=== PATIENT | female | born 1935 | race Asian ===

== ENCOUNTER 2024-02-28 15:26 | Inpatient (IN) | payer MEDICARE, OTHER ==
[~2024-02-28] VITALS: Ht 152.4 cm
[2024-02-28] MEDS ORDERED: ZESTRIL5 MG PO (15:44)
[2024-02-28] MEDS ORDERED: ELIQUIS2.5 MG PO (15:45)
[2024-02-28] MEDS ORDERED: ondansetron HCL 4 MG/2 ML VIAL IV ONE (16:00)
[2024-02-28] MEDS ORDERED: SODIUM CHLORIDE 0.9% 500 ML IV ONE (16:00)
[2024-02-28 16:12] LABS: BASOPHILS 0.2 % (0-2); EOSINOPHILS 0.1 % (0-6); HEMATOCRIT 31.2 % (35.0-50.0); HEMOGLOBIN 9.8 g/dL (12.0-18.0); LYMPHOCYTES 2.6 % (24-44); MCH 20.7 (27-36); MCHC 31.3 g/dl (30-36); MONOCYTES 6.3 % (0-12); NEUTROPHILS 90.8 % (39-80); PLATELET COUNT 180 K/uL (140-440); RBC 4.73 M/ul (4.3-5.7)
[2024-02-28 16:22] LABS: BILIRUBIN, URINE NEGATIVE (negative); BLOOD/HGB, URINE NEGATIVE (Negative); KETONE, URINE NEGATIVE (Negative); LEUK ESTERASE, URINE NEGATIVE (negative); NITRITE, URINE NEGATIVE (negative); PH, URINE 7.5 (5-7)
[2024-02-28 16:33] LABS: ALBUMIN 3.8 g/dL (3.4-5.0); ALBUMIN/GLOBULIN RATIO 0.83 (1.1-2.4); BILIRUBIN, TOTAL 2.8 ng/dL (0.2-1.0); BUN/CREATININE RATIO 18.26 (6.0-28.6); CALCIUM 9.4 mg/dL (8.5-10.1); CREATININE, SERUM 1.04 mg/dL (0.55-1.02); MAGNESIUM 1.9 mg/dL (1.8-2.4); PROTEIN, TOTAL 8.4 g/dL (6.4-8.2)
[2024-02-28] MEDS ORDERED: SODIUM CHLORIDE 0.9% 500 ML IV PRN (17:00)
[2024-02-28] MEDS ORDERED: metroNIDAZOLE/SODIUM CHLORIDE 500 MG/100 ML PIGGYBACK IV ONE (18:30)
[2024-02-28] MEDS ORDERED: CEFTRIAXONE/SODIUM CHLORIDE 2 GM/100 ML PIGGYBACK IV ONE (18:30)
[2024-02-28] MEDS ORDERED: CEFAZOLIN SODIUM 2 GM/20 ML SYR IV ONE (20:15)
[2024-02-28 20:26] LABS: INR 0.98 (0.80-1.30); PROTIME 12.3 Sec (11.2-14.2)
[2024-02-28] MEDS ORDERED: ondansetron HCL 4 MG/2 ML VIAL IV PRN (20:30)
[2024-02-28] MEDS ORDERED: LACTATED RINGER'S 1,000 ML IV SCH (20:30)
[2024-02-28] MEDS ORDERED: MORPHINE SULFATE 10 MG/ML VIAL IV PRN (20:30)
[2024-02-28] MEDS ORDERED: FAMOTIDINE 20 MG/ 2 ML VIAL IV ONE (20:30)
[2024-02-28] MEDS ORDERED: FAMOTIDINE 20 MG/ 2 ML VIAL IV SCH (21:00)
[2024-02-28 21:43] VITALS: BP 141/71
--- NOTE | 2024-02-28 21:45 | NUR ---
PATIENT TRANSFERRED TO THE FLOOR BY INSTALL AND REPAIR TECHNICIAN. PATIENT TRANSFERRED FROM STRETCHER TO BED WITH MINIMAL SBA. VS AND BED WEIGHT OBTAINED AND RECORDED. ASSESSMENT COMPLETE. IV FLUSHES WNL. PATIENT HS NO FURTHER NEEDS. CALL LIGHT IN REACH. PATIENT EDUCATED TO ROOM AND CALL LIGHT. PATIENT VERBILIZES UNDERSTANDING. BED ALARM ON. CPOX IN PLACE.
--- NOTE | 2024-02-28 21:55 | NUR ---
pt ARRIVES TO [place] WITH HIDE TRIMMERSHAHRIAR YEN VIA STRETCHER. pt CANTONESE SPEAKING ONLY. DENIES CANARY BREEDER, DAUGHTER TRANSLATING FOR pt. ASKS pt HISTORY QUESTIONS. ORIENTATION TO ROOM AND PLAN OF CARE PROVIDED. QUESTIONS ANSWERED. CALL LIGHT IN REACH. BED ALARM ON.
[2024-02-29] VITALS (12 sets, daily range): BP systolic 122–168; BP diastolic 63–85
[2024-02-29] MEDS ORDERED: ondansetron HCL 4 MG/2 ML VIAL IV PRN (00:15)
[2024-02-29] MEDS ORDERED: LACTATED RINGER'S 1,000 ML IV SCH (00:15)
--- NOTE | 2024-02-29 00:15 | NUR ---
PATIENT UP TO BATHROOM WITH MINIMAL SBA TO VOID. PATIENT BACK TO BED. VS AND I&Os OBTAINED AND RECORDED. BED ALARM ON. CPOX IN PLACE. PATIENT O2 SAT READING DROPPED TO MID 80s WHILE RESTING. 2L NC PLACED ON PATIENT. NO FURTHER NEEDS. CALL LIGHT IN REACH. DAUGHTER IN ROOM ON COUCH.
--- NOTE | 2024-02-29 02:07 | NUR ---
PATIENT RESTING IN BED ON BACK WITH EYES CLOSED. 02 97% ON 2L NC. RESPIRATIONS EVEN AND UNLABORED. CALL LIGHT IN REACH.
--- NOTE | 2024-02-29 04:10 | NUR ---
PATIENT RESTING IN BED ON BACK WITH EYES CLOSED. O2 SAT 97%. RESPIRATIONS EVEN AND UNLABORED. CALL LIGHT IN REACH.
--- NOTE | 2024-02-29 05:34 | NUR ---
PATIENT RESTING IN BED. PATIENT UP TO BATHROOM WITH SBA TO VOID. PATIENT BACK TO BED. VS AND I&Os OBTAINED AND RECORDED. PATIENT DENIES PAIN AT THIS TIME. SCHEDULED MEDICATION ADMINSITERED. NEW BAG IV FLUID INFUSING PER ORDER. NO FURTHER NEEDS. CALL LIGHT IN REACH. BED ALARM ON.
[2024-02-29 05:55] LABS: HEMATOCRIT 25.7 % (35.0-50.0); HEMOGLOBIN 8.3 g/dL (12.0-18.0); MCH 21.1 (27-36); MCHC 32.2 g/dl (30-36); MCV 65.5 fl (81-99); PLATELET COUNT 138 K/uL (140-440); RBC 3.93 M/ul (4.3-5.7)
[2024-02-29] MEDS ORDERED: ACETAMINOPHEN 500 MG TAB PO SCH (06:00)
[2024-02-29 06:08] LABS: ALBUMIN 2.8 g/dL (3.4-5.0); ALBUMIN/GLOBULIN RATIO 0.72 (1.1-2.4); ANION GAP 14.9 (7-21); BILIRUBIN, TOTAL 4.4 ng/dL (0.2-1.0); BUN/CREATININE RATIO 11.71 (6.0-28.6); CALCIUM 8.4 mg/dL (8.5-10.1); CREATININE, SERUM 1.11 mg/dL (0.55-1.02); POTASSIUM 3.9 mmol/L (3.5-5.1); PROTEIN, TOTAL 6.7 g/dL (6.4-8.2)
[2024-02-29 06:25] LABS: LYMPHOCYTES, MANUAL DIFF 17; MONOCYTES, MANUAL DIFF 10; NEUTROPHILS, MANUAL DIFF 73
--- NOTE | 2024-02-29 07:10 | NUR ---
REPORT RECEIVED FROM SHAHRIAR TALLEY. PT RESTING IN BED WITH EYES CLOSED, MOUTH OPEN, RR EVEN AND UNLABORED, SOFT SNORE SNOTED. PTs DAUGHTER RESTING ON COUCH IN ROOM.
--- NOTE | 2024-02-29 08:35 | NUR ---
MEDICATIONS ADMINISTERED, SEE MAR. ASSESSMENT COMPLETE AT THIS TIME. PT IS IN BED AND FEELS DROWSY PER HER DAUGHTER WHO IS PRESENT ON COUCH THROUGHOUT VISIT. PT AND DAUGHTER REFUSE USE OF FLAKE DRIER, DAUGHTER ASSISTS IN COMMUNICATION. PT IS REPORTING NO NAUSEA, BUT SAYS SHE HAS VERY LITTLE APPETITE AT THIS TIME. NO OTHER NEEDS NOTED, IV ABX INFUSING IN R AC WNL AT THIS TIME. CALL LIGHT IN REACH.
[2024-02-29] MEDS ORDERED: CEFTRIAXONE/SODIUM CHLORIDE 1 GM/100 ML PIGGYBACK IV SCH (09:00)
[2024-02-29] MEDS ORDERED: metroNIDAZOLE/SODIUM CHLORIDE 500 MG/100 ML PIGGYBACK IV SCH (09:00)
--- NOTE | 2024-02-29 10:06 | NUR ---
PT CURRENTLY UP AND AMBULATING IN HALLS WITH LIZZIE SMALL.
--- NOTE | 2024-02-29 10:16 | NUR ---
IN TO DO VITALS AND I&O'S. VITALS AND I&O'S DONE AND CHARTED. PATIENT AMBULATED [address] [facility]. PATIENT TOLERATED IT WELL. PATIENT NOW BACK TO BED. CALL LIGHT IN REACH. NO FURTHER NEEDS AT THIS TIME.
--- NOTE | 2024-02-29 10:52 | NUR ---
PT NOT AVAILABLE FOR VISIT. PROVIDED PRAYER.
--- NOTE | 2024-02-29 11:18 | NUR ---
UR CLINICAL REVIEW: [facility] FOR CHOLECYSTECTOMY. PROCEDURE DELAYED DUE TO ANTICOAGULATION ODS [facility] INPT 02/28/24 ORDER MATCHES [facility]INIC[facility] FAXED FOR AUTH REVIEW DISCHARGE TO HOME WHEN PROCEDURE COMPLETED AND STABLE 03/02/24
--- NOTE | 2024-02-29 11:34 | NUR ---
PT RESTING IN BED WITH EYES CLOSED AT THIS TIME, DAUGHTER PRESENT ON COUCH, CPOX AT BEDSIDE. CALL LIGHT IN REACH, NO REQUESTS AT THIS TIME.
--- NOTE | 2024-02-29 11:40 | HP ---
[facility] [address], [place] [address] Signed ADMISSION DATE: 02/28/2024 REASON FOR ADMISSION: Acute cholecystitis and probable gallstone pancreatitis with additional medical issues. HISTORY OF PRESENT ILLNESS: This 88-year-old Cantonese (Mohawk) woman who was accompanied by her daughter. Her daughter lives locally and speaks Albanian reasonably well. 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 Her mother who is the patient of course had presented with two bouts of emesis earlier in the day with epigastric and substernal pain, nausea, but no diarrhea and no fever or chills. Evaluation in the emergency room by Dr. Sandoval and ultimately Dr. Patrick included findings of an elevated white count of 16,000. A chemistry panel with an elevated bilirubin of 2.8, lipase greater than 375. An abdominal ultrasound performed confirms gallstones with gallbladder sludge, marked gallbladder wall thickening and pericholecystic fluid and a positive sonographic Perea's sign. The bile duct was 6 [address] in diameter. A CT scan of the abdomen and pelvis was reviewed showing marked inflammatory change in the region of the alisa hepatis including the gallbladder itself. Findings were most consistent with acute cholecystitis. It is notable that patient's medications include Eliquis. She does not have atrial fibrillation on EKG, but is said to have had a stroke seven years ago according to her daughter with whom I spoke. Her medications include Eliquis, lisinopril and metoprolol. PAST SURGICAL HISTORY: Unremarkable based on information I have available. REVIEW OF SYSTEMS: The patient is thirsty. She is feeling better since admission to the hospital according to her daughter. PHYSICAL EXAMINATION: GENERAL: This is a reserved aged woman who has a BMI of 23.3. HEENT: Mucous membranes are markedly dry. NECK: Trachea is midline. CHEST: Clear without wheeze or rhonchi. HEART: Regular at this time. ABDOMEN: Nondistended. There is no ascites. There is tenderness in the epigastric area. There is no palpable mass. No clear evidence of ascites. Electronically Signed By: CAMPBELL COMER MD 02/29/24 1140 PATIENT NAME: EMILIANO SURESH HISTORY AND PHYSICAL DATE OF : [birth year] REPORT #: [id number] PHYSICIAN: CAMPBELL COMER MD PCP: YESI SILVER MD REPORT IS CONFIDENTIAL AND NOT TO BE RELEASED WITHOUT AUTHORIZATION [facility] [address], [place] [address] Signed EXTREMITIES: Show no clubbing, cyanosis, or edema. LABORATORY STUDIES: Show a white count of 16.7, hematocrit 31.2, platelets a 180,000. Chem profile showing normal electrolytes. Creatinine is 1.04. Lipase elevated to greater than 375, reference upper limits of normal 77. CT scan images were reviewed, which confirm findings of a markedly edematous and distended gallbladder. I do not observe dilated common bile duct at this time. Ultrasound images were reviewed showing at least one gallstone, but a fair amount of sludge as well. The gallbladder was quite markedly dilated. ASSESSMENT: The patient has acute calculous cholecystitis and concurrent hyperlipasemia consistent with acute pancreatitis. She is on Eliquis for uncertain reasons. However, she has had a stroke in the past and perhaps she is given this medication for that purpose in someway. Her daughter denies that she has had prior history of atrial fibrillation. There are no admissions previously noted in the chart to affirm or refute her past medical history in that regard. I did have a discussion with her daughter regarding the extent to which interventions would be allowed. The patient's daughter wants to avoid operative interventions as much as possible, which is understandable, but given the findings I told her quite frankly that surgery quite likely would be needed and would be beneficial to her. She has a markedly edematous and inflamed gallbladder and at least one stone and a fair amount of sludge. Though she is somewhat infirm based on her advanced age of 88 years, cholecystectomy would likely be beneficial to her once able to be undertaken, whether or not she would require common duct exploration is uncertain. She is ineligible for operative intervention at this time based on the hyperlipasemia (pancreatitis) and importantly also ongoing use of Eliquis. Eliquis will be certainly withheld at this point. Given the complexity and uncertainty of her prior medical history, I have asked Dr. Metz, hospitalist to consult. Things are under control at this time and he will consult on her tomorrow, he says. MD YUSRA Boyce/FLY Electronically Signed By: CAMPBELL COMER MD 02/29/24 1140 PATIENT NAME: EMILIANO SURESH HISTORY AND PHYSICAL DATE OF : [birth year] REPORT #: [id number] PHYSICIAN: CAMPBELL COMER MD PCP: YESI SILVER MD REPORT IS CONFIDENTIAL AND NOT TO BE RELEASED WITHOUT AUTHORIZATION [address], [place] [address] Signed /[id number] cc: MD Dr. Celina Biggs MD Copies: SOLO SANDOVAL MD, RUSSEL J MD ~ Electronically Signed By: CAMPBELL COMER MD 02/29/24 1140 PATIENT NAME: EMILIANO SURESH HISTORY AND PHYSICAL DATE OF : [birth year] REPORT #: [id number] PHYSICIAN: CAMPBELL COMER MD PCP: YESI SILVER MD REPORT IS CONFIDENTIAL AND NOT TO BE RELEASED WITHOUT AUTHORIZATION
--- NOTE | 2024-02-29 12:00 | NUR ---
Spoke with pt and her daughter using motorcycle assembler [id number]. Daughter understands and speaks Qatari well and answers questions before motorcycle assembler can answer. Pt lives with her daughter, she uses a shower chair in the home. She has a cane for long distance, but gets around well. Mother asks for a different shower chair and daughter states the chair has been left when they moved. I gave the infor for [employer] closet printout with phone and address.Pt uses food stamps. They deny any needs or issues. Deny financial issues. Plan to dc to home when medically cleared. Pt cannot have surgery for 48 hours due to use of Eliquis.
--- NOTE | 2024-02-29 12:31 | NUR ---
SCDs APPLIED ORDERED. NO OTHER NEEDS AT THIS TIME, CALL LIGHT IN REACH, DAUGHTER PRESENT IN ROOM.
--- NOTE | 2024-02-29 13:51 | NUR ---
PT RESTING IN BED AWAKE AND ALERT, HAS NO NEEDS AT THIS TIME, REPORTS THAT SHE LIKES HOW THE SCDs FEELS. CALL LIGHT IN REACH, DAUGHTER IN ROOM.
[2024-02-29] MEDS ORDERED: LISINOPRIL10 MG PO (14:03)
--- NOTE | 2024-02-29 14:05 | EKG ---
[facility] [address] [facility] [place] [address] Signed Sinus rhythm with premature atrial complexes Nonspecific T wave abnormality Abnormal ECG No previous ECGs available Confirmed by Reena Valdez MD ([id number]) on 02/29/2024 2:05:12 PM Electronically Signed By: REENA VALDEZ DO 02/29/24 1405 PATIENT NAME: EMILIANO SURESH Electrocardiogram DATE OF : [birth year] PHYSICIAN: REENA VALDEZ DO REPORT #: [id number] REPORT IS CONFIDENTIAL AND NOT TO BE RELEASED WITHOUT AUTHORIZATION
[2024-02-29] MEDS ORDERED: METOPROLOL TART25 MG PO (14:13)
--- NOTE | 2024-02-29 14:25 | NUR ---
IN TO DO VITALS AND I&O'S. VITALS DONE AND CHARTED. PATIENT UP TO BATHROOM, SBA. DAUGHTER IN ROOM.
--- NOTE | 2024-02-29 14:50 | NUR ---
MEDICATION ADMINISTERED, SEE MAR. PT RATES HER PAIN A 0/10 VIA THE SOYBEAN GROWER SERVICE. SHE STATES SHE HAS NO NAUSEA AT THIS TIME. BOWEL TONES ARE ACTIVE IN ALL FOUR QUADRANTS. PT HAS FINISHED A JELLO AND DRINKS SOME WATER AT THIS TIME. NO OTHER REQUESTS, CALL LIGHT IN REACH. PTs DAUGHTER HAS TEMPORARILY GONE HOME AND STATES SHE WILL BE BACK SHORTLY.
--- NOTE | 2024-02-29 15:24 | NUR ---
medications reconciled
--- NOTE | 2024-02-29 17:33 | NUR ---
PT IS REPORTING EDEMA IN HER R HAND AND BILAT ANKLES. LUNG SOUNDS ARE CLEAR TO BUL WITH CRACKLES IN THE BASES. IVF IN R AC DISCONTINUED, MD INFORMED OF UPDATE. MD ARRIVES AND ASSESSES PT WITH UTILIZATION OF SCHOOL TRANSPORTATION DIRECTOR SERVICES. PT SPO2 94% ON RA, PT DOES NOT REPORT SOB. VS TAKEN AND RECORDED. PT DENIES PAIN AT THIS TIME. CALL LIGHT IN REACH, PT DAUGHTER PRESENT THROUGHOUT.
--- NOTE | 2024-02-29 18:28 | NUR ---
PT HAS LIQUID DINNER TRAY IN FRONT OF HER AND HAS JUST STARTED TO DRINK. PT HAS OCCASIONAL COUGH. INCENTIVE SPIROMETER EXPLAINED, PT RETURNS DEMONSTRATION OF USE X10. ENCOURAGED TO USE IS TO ASSIST IN KEEPING LUNGS STRONG. PT VERBALIZES UNDERSTANDING. NO OTHER NEEDS AT THIS TIME, CALL LIGHT IN REACH, DAUGHTER PRESENT IN ROOM THROUGHOUT.
--- NOTE | 2024-02-29 18:48 | NUR ---
PTs DAUGHTER ASSISTS PT TO RESTROOM AND EMPTIES HAT BEFORE STAFF HAS A CHANCE TO VIEW OUTPUT AMOUNT DESPITE REMINDERS.
--- NOTE | 2024-02-29 19:28 | NUR ---
REPORT RECIEVED FROM DAY SHIFT RN. PATIENT RESTING IN CHAIR WITH DAUGHTER IN ROOM. NO FURTHER NEEDS AT THIS TIME. CALL LIGHT IN REACH.
--- NOTE | 2024-02-29 20:43 | NUR ---
CONCRETE FENCE BUILDER OBTAINED VITALS AND I&O. PT STATES NO NEEDS AT THIS TIME. CALL LIGHT WITHIN REACH.
[2024-02-29] MEDS ORDERED: METOPROLOL TARTRATE 25 MG TAB PO SCH (21:00)
--- NOTE | 2024-02-29 21:04 | NUR ---
PATIENT RESTING IN BED WITH FAMILY IN ROOM. SCHEDULED MEDICATION ADMINISTERED. IV ABX INFUSING PER ORDER. IV FLUSHES WNL. CPOX IN PLACE. SCDs IN PLACE. PATIENT DENIES NEEDS AT THIS TIME. CALL LIGHT IN REACH.
--- NOTE | 2024-02-29 21:48 | NUR ---
PATIENT RESTING IN BED. SCHEDULED MEDICATION ADMINISTERED. ASSESSMENT COMPLETE. BOWEL TONES ACTIVE. PATIENT DENIES PAIN. NO FURTHER NEEDS AT THIS TIME. CALL LIGHT IN REACH.
--- NOTE | 2024-02-29 23:28 | NUR ---
PATIENT RESTING IN BED WITH EYES CLOSED. REPIRATIONS EVEN AND UNLABORED. CALL LIGHT IN REACH.
[2024-03-01] VITALS (20 sets, daily range): BP systolic 88–194; BP diastolic 47–89
--- NOTE | 2024-03-01 01:52 | NUR ---
PATIENT RESTING IN BED ON BACK WITH EYES CLOSED. RESPIRATIONS EVEN AND UNLABORED. CALL LIGHT IN REACH.
--- NOTE | 2024-03-01 05:42 | NUR ---
PHOTOGRAPHER APPRENTICE OBTAINED VITALS AND I&O. PT TAKEN OFF CPOX AT TRN DIRECTION. PT STATES NO NEEDS AT THIS TIME. ICE WATER REFILLED AND CALL LIGHT WITHIN REACH.
[2024-03-01 06:12] LABS: BASOPHILS 0.5 % (0-2); EOSINOPHILS 0.7 % (0-6); HEMATOCRIT 25.2 % (35.0-50.0); LYMPHOCYTES 6.9 % (24-44); MCH 21.2 (27-36); MCHC 31.9 g/dl (30-36); MCV 66.3 fl (81-99); NEUTROPHILS 80.9 % (39-80); PLATELET COUNT 129 K/uL (140-440); RDW 15.5 (10.5-15.0)
[2024-03-01 06:28] LABS: ALBUMIN 2.7 g/dL (3.4-5.0); ALBUMIN/GLOBULIN RATIO 0.75 (1.1-2.4); ANION GAP 13.7 (7-21); BUN/CREATININE RATIO 11.36 (6.0-28.6); CALCIUM 8.5 mg/dL (8.5-10.1); CREATININE, SERUM 0.88 mg/dL (0.55-1.02); POTASSIUM 3.7 mmol/L (3.5-5.1); PROTEIN, TOTAL 6.3 g/dL (6.4-8.2)
--- NOTE | 2024-03-01 06:35 | NUR ---
PATIENT RESTING IN BED. PATIENT DAUGHTER TRANSLATING AND STATES THAT PATIENT IS HAVING "ALITTLE PAIN FROM HER GALLBLADDER". SCHEDULED PAIN MEDICATION ADMINISTERED. FRESH WATER PROVIDED. PATIENT HAS NO FURTHER NEEDS. CALL LIGHT IN REACH. BOWEL TONES ACTIVE.
--- NOTE | 2024-03-01 07:14 | NUR ---
REPORT RECEIVED FROM SHAHRIAR TALLEY. PT SITTING UP IN BED WITH HOB ELEVATED, AWAKE AND ALERT. PTs DAUGHTER RESTING ON COUCH. PT SMILES AT THIS RN. CALL LIGHT IN REACH.
--- NOTE | 2024-03-01 08:08 | NUR ---
CALL TO MD TO VERIFY DIET ORDER, VM LEFT FOR MD AND WILL AWAIT RETURN CALL TO VERIFY DIET STATUS.
--- NOTE | 2024-03-01 08:24 | NUR ---
TAKING OFF RT SERVICE, PLEASE CALL WITH CONCERNS OR O2 USE.
--- NOTE | 2024-03-01 08:40 | NUR ---
MORNING MEDICATIONS ADMINISTERED, SEE MAR. ASSESSMENT COMPLETE. FUR DRESSER SERVICES CURRENTLY UNAVAILABLE DESPITE MULTIPLE ATTEMPTS. PTs DAUGHTER ASSISTED IN CONVERSING. PTs DAUGHTER ASSISTS PT TO AMBULATE TO RESTROOM, PT IS STEADY ON HER FEET. PT DENIES ANY PAIN OR NAUSEA AT THIS TIME. NO OTHER NEEDS AT THIS TIME, CALL LIGHT IN REACH, DAUGHTER REMAINS WITH PT.
[2024-03-01] MEDS ORDERED: lisinopriL 10 MG TAB PO SCH (09:00)
--- NOTE | 2024-03-01 10:07 | NUR ---
Upon entering the room, I introduce myself to the patient and her daughter. Her daughter communicates with me and the IMM letter is explained. The daughter does not verbalize questions at this time and is agreeable to sign the IMM letter. There are no care concerns expressed, a signed copy of the letter is returned to the patient and her daughter.
--- NOTE | 2024-03-01 11:40 | NUR ---
Spoke with pt and her daughter. Pt states, "hello" in mongolian and smiles. Daughter updates me she spoke with Dr. Juan and pt will have surgery tomorrow noon. They deny any needs.
--- NOTE | 2024-03-01 11:45 | NUR ---
PT IS UP, AWAKE AND ALERT IN HER RECLINER. SHE IS REQUESTING CHICKEN BROTH - PROVIDED. PTs DAUGHTER IS RESTING ON COUCH BESIDE HER. CALL LIGHT IN REACH.
--- NOTE | 2024-03-01 12:45 | NUR ---
MRI FORM FILLED OUT WITH PT AND ORTHO ASSISTANT SERVICES. PT HAS NO OTHER REQUESTS AT THIS TIME, UP IN RECLINER WITH BLE ELEVATED AND DAUGHTER PRESENT IN ROOM. MRI FORM ATTACHED TO CHART. CALL LIGHT IN REACH.
--- NOTE | 2024-03-01 14:19 | NUR ---
PT NOT AVAILABLE FOR VISIT. PROVIDED PRAYER.
--- NOTE | 2024-03-01 14:30 | NUR ---
PT RETURNS FROM MRI AND AMBULATES BACK TO BED WITH DAUGHTERs ASSIST. NO NEEDS AT THIS TIME, CALL LIGHT IN REACH.
--- NOTE | 2024-03-01 14:44 | NUR ---
PT IN CHAIR AT THIS TIME, SHE REQUESTING TO AMBULATE THE HALLWAY, SBA W/FWW. PT TOLERATED WELL, PAIN 3/10 AT THE END OF THE WALK. ASSISTED PT BACK TO BED FOR AFTERNOON NAP, DENIES ANY FURTHER NEEDS AT THIS TIME.
--- NOTE | 2024-03-01 15:06 | NUR ---
MEDICATION ADMINISTERED, SEE MAY. PT UP IN RECLINER VISITING WITH HER DAUGHTER. NO NEEDS AT THIS TIME, CALL LIGHT IN REACH.
--- NOTE | 2024-03-01 18:21 | NUR ---
PT PUT AMBULATING IN LAND WITH HER DAUGHTER AT THIS TIME.
[2024-03-01 19:05] LABS: HEPATITIS A ANTIBODY, IGM Negative (Negative); HEPATITIS B CORE ANTIBODY, IGM Negative (Negative); HEPATITIS B SURFACE ANTIGEN Negative (Negative); HEPATITIS C AB CIA INTERP Negative (Negative)
--- NOTE | 2024-03-01 19:48 | NUR ---
REPORT RECIEVED FROM DAY SHIFT RN. PATIENT RETING IN CHAIR WITH DAUGHTER IN ROOM. DENIES NEEDS AT THIS TIME. CALL LIGHT IN REACH.
--- NOTE | 2024-03-01 20:55 | NUR ---
PATIENT RESTING IN BED. PREVIOUS BP READING WAS HIGH. THIS RN REPEATED PATIENT BP. SCHEDULED MEDICATION ADMINISTERED. IV ABX INFUSING PER ORDER. IV FLUSHES WNL. ASSESSMENT COMPLETE. PATIENT DENIES FURTHER NEEDS. CALL LIGHT IN REACH.
--- NOTE | 2024-03-01 21:12 | NUR ---
MD CALLED BY THIS RN REGARDING PATIENTS HIGH BP. NEW ORDERS RECIEVED. VERIFIED USING REPEAT BACK METHOD.
[2024-03-01] MEDS ORDERED: hydrALAZINE HCL 20 MG/ML VIAL IV ONE (21:15)
--- NOTE | 2024-03-01 21:31 | NUR ---
PATIENT RESTING IN BED. SCHEDULED MEDICATION DISCUSSED WITH DAUGHTER OVER PHONE AND PATIENT AND DAUGHTER DENY THE NEED FOR THE HAIR BOILER. IV MEDICATION ADMINISTERED. NO FURTHER NEEDS. CALL LIGHT IN REACH.
--- NOTE | 2024-03-01 21:57 | NUR ---
MD CALLED REGARDING PATIENTS HR. NEW ORDERS RECIEVED. VERIFIED USING REPEAT BACK METHOD.
[2024-03-01] MEDS ORDERED: METOPROLOL TARTRATE 5 MG/5 ML VIAL IV ONE (22:00)
--- NOTE | 2024-03-01 22:00 | NUR ---
MD ROSENBAUM CALLED REGARDING PATIENTS TELE READING AND HR. BULL STATES HE WILL COME TO PATIENT ROOM.
--- NOTE | 2024-03-01 22:20 | NUR ---
EKG OBTAINED. SCHEDULED MEDICATION ADMINISTERED. PATIENT REQUESTING NC. PATIENT O2 99% ON RA. 2L NC PLACED FOR PATIENT COMFORT. DAUGHTER IN ROOM TRANSLATING. FAMILY PARTNERSHAHRIAR MCKEON, SHINGLE SAWYER DAVID, AND FLOAT SHAHRIAR DONATO IN ROOM.
--- NOTE | 2024-03-01 22:29 | NUR ---
PT MOVED TO ROOM 129 CCU. DAUGHTER TOOK ALL BELONGINGS TO ROOM.
--- NOTE | 2024-03-01 22:30 | NUR ---
BLOCK CHARTING; 2220 - 0000 PATIENT ARRIVED TO THE UNIT WITH MAYANK REED RN, AND . PATIENT CONNECTED TO MONITOR. HR 130-140'S; A.FIB WITH RVR. PATIENT IS ALERT, REPORTING "POUNDING" CHEST PAIN. PATIENT RECEIVED FIRST DOSE OF LOPRESSOR PRIOR TO TRANSFER. MD REMAINS AT BEDSIDE. PATIENT HYPOTENSIVE AT THIS TIME, 1L LR BOLUS STARTED. SECOND IV SITE ESTABLISHED, STAT LABS DRAWN. PATIENT REPORTS NAUSEA AND HAD SMALL AMOUNT OF EMESIS. PRN ZOFRAN PROVIDED. PATIENT CONTINUED TO HAVE HR 130-140'S WITH SOFT BP. (SEE VS TREND) BOLUS AMIODARONE STARTED PER ORDER. PATIENT HR IMPROVING; 100-120'S. BP STABLE. LAB RESULTS REVIEWED AND ELECTROLYTE REPLACEMENT STARTED. PATIENT TAKEN TO CT FOR R/O PE. PATIENT TOLERATED WELL. UPON RETURN TO ROOM PATIENT UP TO BSC TO VOID. PATIENT TOLERATED ACTIVITY WELL. PATIENT CONVERTED BACK TO SR WITH HR 60-70. BP REMAINS STABLE. FAMILY AT BEDSIDE.
--- NOTE | 2024-03-01 22:32 | NUR ---
LOPRESSOR IV 5 MG GIVEN AT 2220. IV FLUSHED. SL AT THAT TIME.
[2024-03-01 22:34] LABS: HEMOGLOBIN 9.5 g/dL (12.0-18.0)
[2024-03-01] MEDS ORDERED: MORPHINE SULFATE 4 MG/ML VIAL ONE (22:34)
[2024-03-01 22:37] LABS: BASOPHILS 0.6 % (0-2)
[2024-03-01] MEDS ORDERED: MORPHINE SULFATE 4 MG/ML VIAL IV ONE (22:45)
[2024-03-01] MEDS ORDERED: AMIODARONE/DEXTROSE 100 ML IV ONE ×2 (22:51→23:00)
[2024-03-01 22:53] LABS: EOSINOPHILS 0.8 % (0-6); HEMATOCRIT 29.6 % (35.0-50.0); LYMPHOCYTES 12.9 % (24-44); MCH 21.1 (27-36); MCHC 32.1 g/dl (30-36); MCV 65.7 fl (81-99); MONOCYTES 7.2 % (0-12); NEUTROPHILS 78.5 % (39-80); PLATELET COUNT 151 K/uL (140-440); RBC 4.51 M/ul (4.3-5.7); RDW 15.7 (10.5-15.0)
--- NOTE | 2024-03-01 22:57 | NUR ---
MD COMER UPDATED REGARDING PATIENTS STATUS AND PATIENT BEING TRANSFERRED TO CCU.
[2024-03-01] MEDS ORDERED: ESMOLOL HCL 250 ML IV SCH (23:00)
[2024-03-01] MEDS ORDERED: dilTIAZem HCL 25 MG/5 ML VIAL ONE (23:02)
[2024-03-01 23:03] LABS: INR 1.07 (0.80-1.30); PROTIME 13.5 Sec (11.2-14.2)
[2024-03-01] MEDS ORDERED: AMIODARONE/DEXTROSE 200 ML IV ONE ×2 (23:05→23:15)
[2024-03-01] MEDS ORDERED: LACTATED RINGER'S 1,000 ML IV ONE (23:15)
[2024-03-01 23:23] LABS: ALBUMIN 3.1 g/dL (3.4-5.0); ALBUMIN/GLOBULIN RATIO 0.7 (1.1-2.4); ANION GAP 21.1 (7-21); BILIRUBIN, TOTAL 3.1 ng/dL (0.2-1.0); BUN/CREATININE RATIO 9.9 (6.0-28.6); CALCIUM 8.8 mg/dL (8.5-10.1); CREATININE, SERUM 1.01 mg/dL (0.55-1.02); MAGNESIUM 1.6 mg/dL (1.8-2.4); POTASSIUM 3.1 mmol/L (3.5-5.1); PROTEIN, TOTAL 7.5 g/dL (6.4-8.2)
[2024-03-01] MEDS ORDERED: POTASSIUM CHLORIDE 10 MEQ TABCR PO STA (23:26)
[2024-03-01] MEDS ORDERED: MAGNESIUM SULFATE 2 GM/50 ML BAG IV SCH (23:30)
[2024-03-01] MEDS ORDERED: POTASSIUM CHLORIDE 40 MEQ in DEXTROSE 5% 250 ML IV ONE (23:30)
[2024-03-01] MEDS ORDERED: POTASSIUM CHLORIDE 10 MEQ/100 ML BAG IV SCH (23:45)
[2024-03-02] VITALS (20 sets, daily range): BP systolic 99–166; BP diastolic 59–88
--- NOTE | 2024-03-02 01:00 | NUR ---
PATIENT RESTING IN BED. REPORTS FEELING WELL. DENIED PAIN. MILD GI UPSET. MAG AND k+ REPLACEMENT INFUSING PER ORDER, IV SITES WNL X2. PATIENT REMAINS IN SINUS RHYTHM; HR 60'S. ADEQUATE BP.
--- NOTE | 2024-03-02 03:00 | NUR ---
PATIENT UP TO [facility] TO VOID. PATIENT STEADY ON HER FEET. MINIMAL ASSIST REQUIRED. HR 60'S WITH ACTIVITY; SINUS RHYTHM.
--- NOTE | 2024-03-02 05:00 | NUR ---
LAB IN FOR MORNING DRAW. PATIENT RESTING IN BED. VS STABLE. IV SITES WNL X2. PATIENT DENIED GI UPSET OR PAIN.
[2024-03-02] MEDS ORDERED: AMIODARONE/DEXTROSE 200 ML IV ONE (05:05)
[2024-03-02 05:32] LABS: BASOPHILS 1.1 % (0-2); EOSINOPHILS 0.1 % (0-6); HEMATOCRIT 26.1 % (35.0-50.0); HEMOGLOBIN 8.5 g/dL (12.0-18.0); LYMPHOCYTES 3.3 % (24-44); MCH 21.3 (27-36); MCHC 32.6 g/dl (30-36); MCV 65.4 fl (81-99); NEUTROPHILS 72.5 % (39-80); PLATELET COUNT 142 K/uL (140-440); RBC 3.99 M/ul (4.3-5.7); RDW 16.2 (10.5-15.0)
[2024-03-02 05:54] LABS: ALBUMIN 2.8 g/dL (3.4-5.0); ALBUMIN/GLOBULIN RATIO 0.7 (1.1-2.4); ANION GAP 17.8 (7-21); BILIRUBIN, TOTAL 2.4 ng/dL (0.2-1.0); BUN/CREATININE RATIO 8.51 (6.0-28.6); CALCIUM 8.3 mg/dL (8.5-10.1); CREATININE, SERUM 0.94 mg/dL (0.55-1.02); POTASSIUM 4.8 mmol/L (3.5-5.1); PROTEIN, TOTAL 6.8 g/dL (6.4-8.2)
[2024-03-02] MEDS ORDERED: FUROSEMIDE 20 MG/2 ML VIAL IV ONE (06:15)
--- NOTE | 2024-03-02 06:15 | NUR ---
UPDATE PROVIDED TO . SEE EMAR FOR NEW ORDERS.
--- NOTE | 2024-03-02 07:00 | NUR ---
PATIENT PROVIDED LASIX PER ORDER. PATIENT DENIED PAIN OR GI UPSET, PATIENT REQUEST NOT TO TAKE SCHEDULED TYLENOL.
--- NOTE | 2024-03-02 08:30 | NUR ---
in room with pt and daughter, daughter is translating for pt per her request, reports abd discomfort - scheduled for iqra sx later today, abx fusing via iv pump r ac site wnl. call light in reach - pt resting in bed.
--- NOTE | 2024-03-02 09:09 | NUR ---
pt up to bsc with assist, void well - i/o in and iv pump cleared. pt c/o abd discomfort. zofran given iv.
--- NOTE | 2024-03-02 10:13 | NUR ---
call from or - no surgery today. foam chargeral reno asking for orders and clarification of diet.
--- NOTE | 2024-03-02 10:34 | NUR ---
this rn spoke with dr johnson new order for surgery tomorrow, new order for clear liq until midnight. - RN advised pt and family - pt denies needs, denies ice or liquids at this time.
--- NOTE | 2024-03-02 13:40 | NUR ---
In and spoke with Ellen Escalona using deputy chief sheriff [id number]. Lengthy conversation between pt and deputy chief sheriff with deputy chief sheriff asking her to repeat. Automation Developer states pt does not speak cantonese and she cannot interpret the conversation accurately. Pt called her daughter, Stacey. She was able to spell the name of the language Ellen speaks and I was able to find it on the online deputy chief sheriff. Pt speaks Taishanese. Pt had lengthy conversation with deputy chief sheriff [id number] Yessica. Pt explained all the pain she has had from her gallbladder, the palpitations from last night, and how her pain is now gone with medication. She understands her gallbladder needs to be removed. Pt denies any needs and plans on surgery whenever the DrMatt can complete. Note placed on adjust Automation Developer requesting pt use the [employer] deputy chief sheriff.
--- NOTE | 2024-03-02 14:05 | NUR ---
dr johnson here pt inchair and daughter at side. next rn in room with dr wallis using bedside audio boat finisher in [facility]. pt in chair reports no chest pain. hr 62, 98% 1 l nc. 120/66 80 map. pt up with family to bsc. denies needs at this time.
--- NOTE | 2024-03-02 14:15 | NUR ---
dr and combat information center officer helped explain pt clear liquid diet npo after midnight. plan for surgery for tomorrow.
[2024-03-02] MEDS ORDERED: AMIODARONE HCL 180 MG in DEXTROSE 5% 96.4 ML IV ONE (17:05)
--- NOTE | 2024-03-02 17:35 | NUR ---
PT RESTING IN BED, DAUGHTER AT SIDE. WARM BLANKET GIVEN TO BOTH AND HEAT TURNED UP. PT TOLL CL LIQUID DIET AND VOID BSC QS. CALL LIGHT IN REACH AND DENIES NEEDS.
--- NOTE | 2024-03-02 18:53 | NUR ---
PT RESTING WITH FAMILY IN ROOM, DENIES NEEDS, SL IV WNL, FLUIDS AT BEDSIDE UNTIL MIDNIGHT. PLAN FOR SX TOMORROW.
--- NOTE | 2024-03-02 20:00 | NUR ---
PT C/O NAUSEA AND PROVIDED 4MG IVP SLOW OF ZOFRAN. PTDAUGHTER REPORTED THAT PT FEELS LIKE SHE WANT TO THROW UP.
--- NOTE | 2024-03-02 20:08 | NUR ---
PATIENT REPORTS NAUSEA TO TEST OPERATOR, PATIENT ADMINISTERED ZOFRAN PRN, PATIENT NOW REPORTS BETTER, BUT STILL UNCOMFORTABLE.
[2024-03-02] MEDS ORDERED: PROCHLORPERAZINE EDISYLATE 10 MG/2 ML VIAL IV PRN (20:45)
[2024-03-02] MEDS ORDERED: HYDROmorphone HCL 1 MG/ML SYR IV PRN (20:45)
--- NOTE | 2024-03-02 21:06 | NUR ---
CALLED FOR IV PAIN AND ANOTHER NAUSEA MEDICATION FOR MANAGEMENT, NEW ORDERS GIVEN AT 2044. AT THIS TIME DILAUDID 0.5MG IV AND COMPAZINE 10MG IV GIVEN AT THIS TIME, PATIENT CONTINUES TO ENDORSE PAIN AND NAUSEA. PATIENT DAUGHTER AT BEDSIDE. ASSISTS WITH TRANSLATION FOR ASSESSMENT. TRANSLATION COMPUTER IN ROOM WAS ON HOLD FOR 15MIN WITH NO ANSWER.
--- NOTE | 2024-03-02 21:08 | NUR ---
PATIENT JUST BACK TO BED FROM BATHROOM AND AMBULATING IN ROOM, SITTING UP IN RECLINER.
[2024-03-03] VITALS (21 sets, daily range): BP systolic 90–149; BP diastolic 44–84
--- NOTE | 2024-03-03 00:25 | NUR ---
PATIENT RESTING IN BED EYES CLOSED, NO DISTRESS NOTED. PATIENT ALERT TO RN AT BEDSIDE. ASSESSMENT COMPLETE. PATIENT REPORTS NO NAUSEA AND PAIN IS MUCH BETTER. CALL LIGHT IN REACH, NO REQUESTS OR CONCERNS AT THIS TIME BY PATIENT OR DAUGHTER.
--- NOTE | 2024-03-03 02:30 | NUR ---
PATIENT UP TO BATHROOM WITH DAUGHTER TO VOID. PATIENT REPORTS NO PAIN OR NAUSEA, SHE DID REPORT SHE FELT "A LITTLE DIZZY WHEN STANDING AND WALKING." PATIENT REPORTS NO DIZZINESS AT REST.
[2024-03-03 05:21] LABS: BASOPHILS 0.9 % (0-2); EOSINOPHILS 0.7 % (0-6); HEMOGLOBIN 8.2 g/dL (12.0-18.0); LYMPHOCYTES 7.5 % (24-44); MCH 21.3 (27-36); MCHC 32.9 g/dl (30-36); MCV 64.9 fl (81-99); MONOCYTES 11.8 % (0-12); NEUTROPHILS 79.1 % (39-80); PLATELET COUNT 148 K/uL (140-440); RBC 3.86 M/ul (4.3-5.7); RDW 15.5 (10.5-15.0)
--- NOTE | 2024-03-03 05:25 | NUR ---
PATIENT RESTING QUIETLY IN BED EYES CLOSED, ALERT TO RN AT BEDSIDE. NO COMPLAINTS TO REPORT OF PAIN OR NAUSEA.
[2024-03-03 05:26] LABS: ALBUMIN 2.6 g/dL (3.4-5.0); ALBUMIN/GLOBULIN RATIO 0.68 (1.1-2.4); ANION GAP 16.5 (7-21); BILIRUBIN, TOTAL 1.3 ng/dL (0.2-1.0); BUN/CREATININE RATIO 12.14 (6.0-28.6); CALCIUM 8.3 mg/dL (8.5-10.1); CREATININE, SERUM 1.07 mg/dL (0.55-1.02); POTASSIUM 3.5 mmol/L (3.5-5.1); PROTEIN, TOTAL 6.4 g/dL (6.4-8.2)
--- NOTE | 2024-03-03 06:40 | NUR ---
PATIENT REPOSITIONED, SHE DENIES PAIN OR NAUSEA AT THIS TIME. PATIENT DAUGHTER AT BEDSIDE IN RECLINER.
--- NOTE | 2024-03-03 08:21 | NUR ---
PT RESTING IN BED COMFORTABLY WITH DAUGHTER AT BEDSIDE. PT WAKES EASILY, STATES SHE STILL HAS "SOME PAIN" IN ABDOMEN, RUBBING HER ABD GENERALLY BUT STATES THAT SHE DOES NOT NEED PAIN MEDICAITON AT THIS TIME. THROUGH DAUGHTERS TRANSLATION PT DENIES NAUSEA. BREAKFAST PROVIDED TO DAUGHTER, EDUCATION ON NPO TILL AFTER SURGERY PROVIDED TO PT AND DAUGHTER AND BOTH DEMONSTRATE UNDERSTANDING. VS STABLE ON MONITOR, REMAINS IN NSR, AFEBRILE. DAUGHTER DENIES NEEDS AT THIS TIME.
--- NOTE | 2024-03-03 09:30 | NUR ---
AM ASSESSMENT COMPLETE - PT UP IN CHAIR ASSISTED BY DAUGHTER. DAUGHTER PROVIDING MOST CARES FOR PT INCLUDING USING THE BSC. FINE CRACKLES NOTED IN BILATERAL BASES POSTERIORLY. VS STABLE. PT CONTINUES TO AWAIT SURGERY. DENIES NEEDS AT THIS TIME.
--- NOTE | 2024-03-03 11:12 | NUR ---
NOTED IV SITE TO LEFT FOREARM WITH SWELLING AND REDNESS UNABLE TO FLUSH. SITE DISCONTINUED. NOTED IV SITE TO RIGHT AC TO BE LEAKING. SITE WAS DISCONTINUED. NEW 20G PLACED TO LEFT HAND. SITE WNL. IV ABX STARTED. PATIENT DAUGHTER AT BEDSIDE.
--- NOTE | 2024-03-03 12:58 | NUR ---
SURGEON ROUNDING IN ROOM PRIOR TO OR - TRANSLATION SERVICES USED (#[id number]) TO DISCUSS PROCEDURE AND COMPETE DNR WAIVER FORM. ALL QUESTIONS ANSWERED. CONSENT SIGNED. ASSESSMENT UNCHANGED FROM EARLIER. PT DENIES NEEDS AT THIS TIME.
[2024-03-03] MEDS ORDERED: METOCLOPRAMIDE HCL 10 MG/2 ML SDV ONE (14:39)
[2024-03-03] MEDS ORDERED: LACTATED RINGER'S 0 ML IV ONE (14:39)
[2024-03-03] MEDS ORDERED: DEXAMETHASONE SOD PHOS 4 MG/ML VIAL ONE (14:39)
[2024-03-03] MEDS ORDERED: ondansetron HCL 4 MG/2 ML VIAL ONE (14:39)
[2024-03-03] MEDS ORDERED: propofoL 200 MG/20 ML VIAL ONE (14:39)
[2024-03-03] MEDS ORDERED: LIDOCAINE HCL 4% 5 ML AMP ONE (14:39)
[2024-03-03] MEDS ORDERED: fentaNYL citrate 100 MCG/2 ML VIAL ONE (14:39)
[2024-03-03] MEDS ORDERED: SUGAMMADEX SODIUM 200 MG/2 ML ML ONE (14:39)
[2024-03-03] MEDS ORDERED: ROCURONIUM BROMIDE 50 MG/5 ML SYR ONE (14:39)
[2024-03-03] MEDS ORDERED: KETOROLAC TROMETHAMINE 30 MG/ML VIAL ONE (14:39)
[2024-03-03] MEDS ORDERED: FAMOTIDINE 20 MG/ 2 ML VIAL ONE (14:39)
[2024-03-03] MEDS ORDERED: SUCCINYLCHOLINE IN 0.9% NACL 200 MG/10 ML SYRINGE ONE (14:39)
--- NOTE | 2024-03-03 15:00 | NUR ---
WIPE DOWN COMPLETE, NEW LINENS PLACED.
--- NOTE | 2024-03-03 16:08 | NUR ---
MD NOTIFIED OF PT RHYTHEM CHANGE TO AFIB WITH RATES 130. ORDER REVIEVED FOR 1 TIME IV PUSH 5MG LOPRESSOR.
[2024-03-03] MEDS ORDERED: METOPROLOL TARTRATE 5 MG/5 ML VIAL ONE (16:13)
[2024-03-03] MEDS ORDERED: METOPROLOL TARTRATE 5 MG/5 ML VIAL IV ONE ×2 (16:15→17:00)
--- NOTE | 2024-03-03 16:36 | NUR ---
OR CHARGE UPDATED ON PT RHYTHEM CHANGE AND CURRENT RATE AFTER 5MG LOPRESSOR PUSH.
[2024-03-03] MEDS ORDERED: dilTIAZem HCL 25 MG/5 ML VIAL IV STA (17:11)
[2024-03-03] MEDS ORDERED: dilTIAZem HCL 25 MG/5 ML VIAL ONE (17:14)
[2024-03-03 17:21] LABS: BASOPHILS 3.3 % (0-2); EOSINOPHILS 1.4 % (0-6); HEMATOCRIT 29.7 % (35.0-50.0); HEMOGLOBIN 9.3 g/dL (12.0-18.0); LYMPHOCYTES 5.6 % (24-44); MCH 20.7 (27-36); MCHC 31.2 g/dl (30-36); MCV 66.1 fl (81-99); MONOCYTES 7.3 % (0-12); NEUTROPHILS 82.4 % (39-80); PLATELET COUNT 169 K/uL (140-440); RDW 15.6 (10.5-15.0)
[2024-03-03] MEDS ORDERED: DILTIAZEM HCl/D5W 125 ML IV ONE (17:30)
[2024-03-03] MEDS ORDERED: DILTIAZEM HCl/D5W 125 ML IV SCH (17:30)
--- NOTE | 2024-03-03 17:40 | NUR ---
PT REMAINS IN AFIB RHYTHEM WITHOUT DECREASED RATE DESPITE 2 IV PUSH OF 5MG LOPRESSOR AND 10MG PUSH CARDIZEM. CARDIZEM DRIP STARTED AT RATE 5 MG/HR. PT SYMPTOMATIC WITH STANDING FEELING FAINT, PIVOT TRANSFER TO BED FROM CHAIR. FAMILY AT BEDSIDE. MD IN ROOM TO ASSES. 2ND IV ACCESS ATTEMPTS IN PROGRESS.
[2024-03-03 17:48] LABS: ALBUMIN 2.9 g/dL (3.4-5.0); ALBUMIN/GLOBULIN RATIO 0.66 (1.1-2.4); ANION GAP 17.7 (7-21); BILIRUBIN, TOTAL 1.3 ng/dL (0.2-1.0); BUN/CREATININE RATIO 15.3 (6.0-28.6); CALCIUM 8.6 mg/dL (8.5-10.1); CREATININE, SERUM 0.98 mg/dL (0.55-1.02); MAGNESIUM 1.9 mg/dL (1.8-2.4); POTASSIUM 3.7 mmol/L (3.5-5.1); PROTEIN, TOTAL 7.3 g/dL (6.4-8.2)
[2024-03-03] MEDS ORDERED: LACTATED RINGER'S 500 ML IV SCH (18:00)
[2024-03-03] MEDS ORDERED: POTASSIUM CHLORIDE 10 MEQ TABCR PO ONE (18:00)
--- NOTE | 2024-03-03 18:10 | EKG ---
[facility] [address] [facility] [place] [address] Signed Atrial fibrillation with rapid ventricular response Marked ST abnormality, possible anteroseptal subendocardial injury Abnormal ECG When compared with ECG of 28-FEB-2024 17:30, Atrial fibrillation has replaced Sinus rhythm Vent. rate has increased BY [address] now depressed in Anterior leads T wave inversion now evident in Inferior leads T wave inversion now evident in Anterolateral leads Confirmed by Leonie aMdrid MD ([id number]) on 03/03/2024 6:10:48 PM Electronically Signed By: LEONIE MADRID MD 03/03/241809 PATIENT NAME: EMILIANO SURESH Electrocardiogram DATE OF : [birth year] PHYSICIAN: LEONIE MADRID MD REPORT #: [id number] REPORT IS CONFIDENTIAL AND NOT TO BE RELEASED WITHOUT AUTHORIZATION
[2024-03-03] MEDS ORDERED: dilTIAZem HCL 30 MG TAB PO SCH (20:00)
--- NOTE | 2024-03-03 20:41 | NUR ---
HOSPITAL CERTIFIED ORTHOTIST PRACTICE MANAGER OUTSIDE OF HOURS FOR LANGUAGE REQUEST, PATIENT DAUGHTER TRANSLATED THAT PATIENT HAS NO NAUSEA, OR PAIN, BUT SHE NEEDS TO PEE BUT CAN NOT WHILE IN BED AND FEELS VERY UNCOMFORTABLE FOR THAT REASON, PATIENT ASSISTED UP TO BEDSIDE COMMODE WITH TWO STAFF VOIDED 450ML CLEAR YELLOW URINE. PATIENT TOLERATED ACTIVITY WELL WITH RATE CONTROL. TITRATING DOWN DILTIAZEM DRIP INIFUSION AFTER STARTING FIRST DOSE OF ORAL.
--- NOTE | 2024-03-03 23:27 | NUR ---
PATIENT UP TO BEDSIDE COMMODE, TOLERATED ACTIVITY WELL, WITH ONE PERSON LINE CONTROL. PATIENT REPORTS NO PAIN OR NAUSEA. PROVIDED EDUCATION AND ANSWERED QUESTIONS TO WHAT TO EXPECT BEFORE SURGERY, DURING AND AFTER.
[2024-03-04] VITALS (18 sets, daily range): BP systolic 95–133; BP diastolic 41–71
--- NOTE | 2024-03-04 02:12 | NUR ---
PATIENT RESTING IN BED EYES CLOSED ALERT TO RN ROUNDING WITH SCHEDULED CARDIZEM, PATIENT DAUGHTER RESTING AWAKE ON COUCH IN ROOM. PATIENT REPORTS NO PAIN OR NAUSEA AT THIS TIME.
[2024-03-04 05:09] LABS: BASOPHILS 0.7 % (0-2); EOSINOPHILS 0.8 % (0-6); HEMATOCRIT 25.6 % (35.0-50.0); HEMOGLOBIN 8.1 g/dL (12.0-18.0); LYMPHOCYTES 12.3 % (24-44); MCH 20.9 (27-36); MCHC 31.8 g/dl (30-36); MCV 65.8 fl (81-99); MONOCYTES 9.9 % (0-12); NEUTROPHILS 76.3 % (39-80); PLATELET COUNT 157 K/uL (140-440); RBC 3.89 M/ul (4.3-5.7); RDW 15.8 (10.5-15.0)
[2024-03-04 05:24] LABS: ALBUMIN 2.5 g/dL (3.4-5.0); ALBUMIN/GLOBULIN RATIO 0.66 (1.1-2.4); ANION GAP 14.7 (7-21); BILIRUBIN, TOTAL 1.1 ng/dL (0.2-1.0); BUN/CREATININE RATIO 15.55 (6.0-28.6); CALCIUM 8.2 mg/dL (8.5-10.1); CREATININE, SERUM 0.9 mg/dL (0.55-1.02); POTASSIUM 3.7 mmol/L (3.5-5.1); PROTEIN, TOTAL 6.3 g/dL (6.4-8.2)
--- NOTE | 2024-03-04 05:51 | NUR ---
PATIENT HAS SLEPT WELL OVER SHIFT, SHE HAS REMAINED IN [place] OVERSHIFT DILTIAZEM DRIP OFF 214403/03/24, TRANSITIONED TO PO CARDIZEM. SHE HAS NOT REQUIRED ANY PRN MEDICATIONS OVER SHIFT, SHE REPORTED NO NAUSEA OR PAIN. SHE HAS BEEN UP TO BEDSIDE COMMODE WITH ONE PERSON ASSIST FOR LINE MANAGEMENT. VOIDING QUANTITY SUFFICIENT. PATIENT'S DAUGHTER HAS STAYED THE NIGHT RESTING ON COUCH IN ROOM.
[2024-03-04] MEDS ORDERED: MAGNESIUM SULFATE 2 GM/50 ML BAG IV SCH (06:30)
[2024-03-04] MEDS ORDERED: POTASSIUM CHLORIDE 10 MEQ TABCR PO ONE ×2 (06:30)
--- NOTE | 2024-03-04 08:03 | NUR ---
SBAR REPORT RECEIVED FROM SHAHRIAR CONROY. ALL EVENTS OF THE PREVIOUS SHIFT WERE DISCUSSED AND PLAN OF CARE REVIEWED. PATIENT EMILIANO ARRIAGA IS RESTING IN BED WITH EYES CLOSED. DAUGHTER REMAINS AT BEDSIDE. VSS WDL PER MONITOR. NO SIGNS OF DISTRESS OR PAIN NOTED ROUNDED WITH MD ROSENBAUM. CONCERNS AND QUESTIONS ADDRESSED WERE MAGNESIUM REPLACEMENT AND EKG ST DEPRESSION. WILL ADDRESS SURGERY WITH MD COMER WHEN HE ROUNDS ON THIS PATIENT
[2024-03-04] MEDS ORDERED: LACTATED RINGER'S 1,000 ML IV SCH (09:30)
--- NOTE | 2024-03-04 13:21 | NUR ---
ROUNDED WITH MD COMER. TOAN-MILAN SCHEDULED FOR LATER TODAY. DAUGHTER REMAINS AT BEDSIDE. ALL QUESTIONS/CONCERNS WERE ANSWERED AND ADDRESSED. PATIENT EMILIANO BOUCHER IS BACK IN BED RESTING COMFORTABLY. VSS WDL PER MONITOR.
[2024-03-04] MEDS ORDERED: ETOMIDATE 40 MG/20 ML VIAL ONE (13:39)
[2024-03-04] MEDS ORDERED: fentaNYL citrate 100 MCG/2 ML VIAL ONE (13:44)
[2024-03-04] MEDS ORDERED: LACTATED RINGER'S 1,000 ML IV ONE (13:44)
[2024-03-04] MEDS ORDERED: ondansetron HCL 4 MG/2 ML VIAL ONE (13:44)
[2024-03-04] MEDS ORDERED: DEXAMETHASONE SOD PHOS 4 MG/ML VIAL ONE (13:44)
[2024-03-04] MEDS ORDERED: SUCCINYLCHOLINE IN 0.9% NACL 200 MG/10 ML SYRINGE ONE (13:44)
[2024-03-04] MEDS ORDERED: ROCURONIUM BROMIDE 50 MG/5 ML SYR ONE ×2 (13:44→15:20)
[2024-03-04] MEDS ORDERED: METOCLOPRAMIDE HCL 10 MG/2 ML SDV ONE (13:44)
[2024-03-04] MEDS ORDERED: KETOROLAC TROMETHAMINE 30 MG/ML VIAL ONE (13:44)
[2024-03-04] MEDS ORDERED: LIDOCAINE HCL 4% 5 ML AMP ONE (13:44)
[2024-03-04] MEDS ORDERED: FAMOTIDINE 20 MG/ 2 ML VIAL ONE (13:44)
[2024-03-04] MEDS ORDERED: SUGAMMADEX SODIUM 200 MG/2 ML ML ONE (13:44)
[2024-03-04] MEDS ORDERED: propofoL 200 MG/20 ML VIAL ONE (13:45)
[2024-03-04] MEDS ORDERED: iopamidoL 30 ML VIAL ONE ×2 (13:53→16:50)
[2024-03-04] MEDS ORDERED: SODIUM CHLORIDE 0.9% 40 ML IV ONE (13:54)
--- NOTE | 2024-03-04 14:14 | NUR ---
CAMPBELL REGALADO CRNA AND COOPER, TOW MOTOR OPERATOR ESCORTED PATIENT DUN DI TO OR FOR SCHEDULE SURGICAL PROCEDURE. SUPERVISOR ELECTRONICS ASSEMBLY DENIED BY DAUGHTER WHO REMAINED IN ROOM TO TRANSLATE. VSS AND WDL PER MONITOR. ALL QUESTIONS ANSWERED. HIBLICASIAS WIPE DOWN COMPLETED. ALL REQUIRED DOCUMENTATION PRINTED OUT
[2024-03-04] MEDS ORDERED: METOCLOPRAMIDE HCL 10 MG/2 ML SDV IV PRN (15:15)
[2024-03-04] MEDS ORDERED: fentaNYL citrate 50 MCG/ML SDV IV PRN (15:15)
[2024-03-04] MEDS ORDERED: IBLOOD GLUCOSE TEST STRIP 1 EA TEST VI PRN (15:15)
[2024-03-04] MEDS ORDERED: droPERidol 5 MG/2 ML VIAL IV PRN (15:15)
[2024-03-04] MEDS ORDERED: NALOXONE HCL 0.4 MG SYR IV PRN (15:15)
[2024-03-04] MEDS ORDERED: ondansetron HCL 4 MG/2 ML VIAL IV PRN (15:15)
[2024-03-04] MEDS ORDERED: MORPHINE SULFATE 10 MG/ML VIAL IV PRN (15:15)
[2024-03-04] MEDS ORDERED: PROCHLORPERAZINE EDISYLATE 10 MG/2 ML VIAL IV PRN (15:15)
[2024-03-04] MEDS ORDERED: MORPHINE SULFATE 10 MG/ML VIAL ONE (15:20)
[2024-03-04] MEDS ORDERED: ACETAMINOPHEN 1,000 MG/100 ML VIAL ONE (15:24)
--- NOTE | 2024-03-04 18:13 | NUR ---
PATIENT EMILIANO BOUCHER ARRIVED BACK TO THE UNIT AT 1804 WITH AN OPA AND 6L SIMPLE MASK. SHE IS SEDATED WITH A RASS OF -3. GRAY TENDER LUPE, SHAHRIAR MCFARLAND, AND MD COMER AT BEDSIDE. PATIENT DEMETRICE DAUGHTER AT BEDSIDE. SEE ASSESSMENT FOR VS
--- NOTE | 2024-03-04 18:23 | NUR ---
03/04/241822 Edwige Merchant 180-PT ARRIVES TO CCU RM 129 W/ THIS YOKER. PT RESTING SUPINE, NO RESPONSE TO NOXIOUS STIMULI. VSS ON 10L VIA MASK W/ OPA IN PLACE, RR EVEN AND UNLABORED. 1814-PT TITRATED DOWN TO 6L VIA MASK, VS REMAIN STABLE, RR EVEN AND UNLABORED. AT BEDSIDE TO DISCUSS PROCEDURE RESULTS AND PLAN OF CARE W/ FAMILY, ALL QUESTIONS ANSWERED.
--- NOTE | 2024-03-04 19:20 | NUR ---
BEDSIDE REPORT FROM LUPE CAFETERIA HELPER, PATIENT IS ON 4L N.C. AND WITH VOICE AND TOUCH WILL RESPOND TO QUESTIONS. SHE IS NOTABLEY DROWSY. SCDS ARE ON. V/S STABLE. PATIENT'S DAUGHTER IS AT BEDSIDE. T-TUBE AND EDWINA DRAIN ASSESSED, PACU EMPTIED EDWINA FOR 30ML, LEFT T-TUBE SMALL AMOUNT FOR CCU RECORDS. NOTED THAT PATIENT DOES HAVE SANGUINEOUS SMALL AMOUNT NOTED AT DRAIN X2 GAUZE AND AT UMBILICAL LAP SITE. PATIENT REPORTS NO PAIN OR NAUSEA AT THIS TIME.
--- NOTE | 2024-03-04 20:30 | NUR ---
PATIENT BLADDER SCANNED AT THIS TIME EVALUATE POST OP, PATIENT HAD NO URINE OUT IN SURGERY AND IS DROWSY NOW. ASSESSED 200ML URINE IN BLADDER.
--- NOTE | 2024-03-04 21:54 | NUR ---
PATIENT RESTING IN BED, AROUSABLE TO VOICE. V/S STABLE. DRAINS DEPENDENT AND SECURE. PATIENT DOES NOT ENDORSE PAIN OR NAUSEA AT THIS TIME
[2024-03-05] VITALS (16 sets, daily range): BP systolic 120–140; BP diastolic 51–73
--- NOTE | 2024-03-05 01:00 | NUR ---
PATIENT ALERT TO RN AT BEDSIDE FOR ASSESSMENT, SHE REPORTS SHE NEEDS TO VOID, THIS RN OFFERED BED JAMES OR PURWICK, ALSO IF SHE REALLY FELT LIKE TRYING STAFF COULD ATTEMPT TO ASSIST HER TO BSC. PATIENT REPORTS SHE DOES NOT FEEL SAFE TO GET OUT OF BED YET, SHE WOULD LIKE TO TRY THE PURWICK.
--- NOTE | 2024-03-05 02:30 | NUR ---
CALLED TO REPORT NO URINE OUT SINCE PRIOR TO SURGERY, ALSO REQUEST ORDER FOR PPI, NEW ORDERS GIVEN FOR GUY PLACEMENT, PPI.
--- NOTE | 2024-03-05 02:58 | NUR ---
INTO PATIENT ROOM TO ADMINISTER SCHEDULED MEDICATION, PROVIDE PAIN COVERAGE FOR 4/10 NON-VERBAL SCALE, AND PLACE GUY, AFTER DILAUDID 0.5MG IV ADMINISTERED AND DISCUSSED GUY PLACEMENT PATIENT SAID SHE WOULD LIKE TO TRY TO GET UP TO BEDSIDE COMMODE TO TRY TO VOID. PATIENT ABLE TO VOID 350ML URINE. WILL HOLD OFF ON GUY CATHETER.
[2024-03-05 05:36] LABS: BASOPHILS 0.2 % (0-2); HEMATOCRIT 26.1 % (35.0-50.0); HEMOGLOBIN 8.2 g/dL (12.0-18.0); LYMPHOCYTES 11.1 % (24-44); MCH 20.9 (27-36); MCHC 31.4 g/dl (30-36); MCV 66.4 fl (81-99); MONOCYTES 2.7 % (0-12); PLATELET COUNT 153 K/uL (140-440); RBC 3.93 M/ul (4.3-5.7); RDW 15.4 (10.5-15.0)
--- NOTE | 2024-03-05 05:50 | NUR ---
PATIENT UP TO BEDSIDE COMMODE ONE PERSON ASSIST FOR LINE/DRAIN MANAGEMENT. PATIENT TOLERATED ACTIVITY WELL. SHE REPORTS MINIMAL PAIN AND DOES NOT WANT PAIN MEDICATION, PATIENT WILLING TO TAKE SCHEDULED TYLENOL AT THIS TIME. SHE REPORTS NO NAUSEA, SCANT AMOUNT OF DRAINAGE THIS AM IN T-TUBE, 20ML IN EDWINA THIS AM.
[2024-03-05 05:54] LABS: ALBUMIN 2.5 g/dL (3.4-5.0); ALBUMIN/GLOBULIN RATIO 0.63 (1.1-2.4); BILIRUBIN, TOTAL 0.9 ng/dL (0.2-1.0); BUN/CREATININE RATIO 15.46 (6.0-28.6); CALCIUM 8.6 mg/dL (8.5-10.1); CREATININE, SERUM 0.97 mg/dL (0.55-1.02); PROTEIN, TOTAL 6.5 g/dL (6.4-8.2)
--- NOTE | 2024-03-05 08:41 | NUR ---
RN IN FOR AM MEDS, EDUCATED ON PO CARDIZEM. OPENED CURTAINS AND PT DENIES PAIN OR NEEDS. EDWINA DRAIN EMPTIED FOR 10 ML OF SEROU SANG DRAINAGE, T TUBE TO GRAVITY WTIH BILE COLOR FLUID. ABD DRSG WITH OLD DRAINAGE NOTED. PT DRINKING WATER, BITE OF FOOD. FAMILY AT BEDSIDE, AM CARE DONE.
--- NOTE | 2024-03-05 08:51 | NUR ---
IN WITH DR ROSENBAUM AND PT, WITH DAUGHTER AND GRANDSON AT SIDE. ENC is ENC, DEEP BREATHGING.
[2024-03-05] MEDS ORDERED: FAMOTIDINE 20 MG TAB PO SCH (09:00)
[2024-03-05] MEDS ORDERED: dilTIAZem HCL 120 MG CAPCR PO SCH (09:00)
--- NOTE | 2024-03-05 09:10 | NUR ---
PT USING IS WITH NURSE ASSIST. GRANDSON IS INTERPRETING AND HELPING DRYWALL HANGER PT. SHE IS GETTING INSPIRATION UP TO ABOUT THE 500 JG. ENC. HER TO TAKE 1 DEEP BREATH AND THEN AROUND 4-5 NORMAL BREATHS TO NOT HYPER VENTALATE. CALL LIGHT IN REACH. AND DENIES NEEDS.
--- NOTE | 2024-03-05 10:54 | NUR ---
VISITED DURING SPIRITUAL CARE ROUNDS. PT SUPPORTED BY FAMILY IN ROOM; NO NEEDS. OIL PLANT OPERATOR PROVIDED SUPPORTIVE CARE, HOSPITALITY, PRAYER. FAMILY EXPRESSED GRATITUDE.
[2024-03-05] MEDS ORDERED: HYDROCODONE/ACETA 5/325 TAB PO PRN (12:45)
[2024-03-05] MEDS ORDERED: ACETAMINOPHEN 500 MG TAB PO PRN (12:45)
[2024-03-05] MEDS ORDERED: IBUPROFEN 600 MG TAB PO PRN (12:45)
--- NOTE | 2024-03-05 12:52 | NUR ---
dr johnson was here - capped the t tube. pt has eaten rice soup from home well. denies needs. enc. to use bathroom, pt denies needing to have to use bathroom - asked pt to try to go within the next 30 min. and I will bladder scan.
--- NOTE | 2024-03-05 13:14 | NUR ---
pt assisted up to bsc to void, bed bath and linen change. call light in reach and ready for trsf to med surg.
--- NOTE | 2024-03-05 13:35 | NUR ---
REPORT TO RUDY RN - PT TRSF TO 114 VIA BED -
--- NOTE | 2024-03-05 13:48 | NUR ---
CASE MANAGEMENT 1345: NO NEEDS FROM CASE MANAGEMENT TODAY.
--- NOTE | 2024-03-05 14:07 | NUR ---
PATIENT TO MED SURG ROOM 114, ASESSMENT IS COMPLETE, VSS. TELE #9 IS ON, PATIENT NSR WITH HR OF 70. PATIENT REMAINS ON ROOM AIR, EDWINA EMPTIED FOR 10ML OS SEROSANG FLUID. MIDLINE INCISION IS COVERED, T-TUBE IS PLUGGED. SCD'S ARE ON. DAUGHTER IS IN ROOM WITH PATIENT. PATIENT REPORTS NO PAIN, VIA DAUGHTER INTERPRETING FOR PATIENT.
--- NOTE | 2024-03-05 15:02 | NUR ---
PATIENT UP TO COMMODE TO VOID 300ML OF CLEAR YELLOW URINE. LINENS FULLY CHANGED. PATIENT BACK TO BED WITH ONE PERSON ASSIST. LEFT HAND IS WEEPING CLEAR FLUID FROM PREVIOUS INFILTRATED IV...GUAZE DRESSING LIGHTLY APPLIED TO THIS AND HAND ELEVATED ON ONE PILLOW. SCD'S ARE ON. PATIENT DENIES PAIN.
--- NOTE | 2024-03-05 16:49 | NUR ---
PATIENT IS RESTING IN BED, DENIES NEED FOR PAIN MEDICATIONS, EDUCATION ON EDWINA EMPTYING DONE WITH DAUGHTER. PATIENT UP TO COMMODE WITH DAUGHTER, ONE PERSON ASSIST. PATIENT IS SALINE LOCKED AND AMBULATING AROUND IN ROOM.
--- NOTE | 2024-03-05 18:13 | NUR ---
PATIENT AMBULATED SEVERAL LAPS IN HALLWAY WITH DAUGHTER.
--- NOTE | 2024-03-05 18:30 | NUR ---
PATIENT SITTING UP IN CHAIR USING IS AT THIS TIME. DAUGHTER IN ROOM. VITALS AND I&O'S DONE AND CHARTED. CALL LIGHT IN REACH. NO FURTHER NEEDS AT THIS TIME.
--- NOTE | 2024-03-05 19:40 | NUR ---
REPORT RECEIVED FROM DAY SHIFT RN. PT SITTING IN RECLINER ALERT AND ORIENTED. UP TO BSC WITH SBA AND FWW TO VOID. GAIT STEADY. BACK TO BED, KUMAR WELL. SCD'S IN PLACE. NO FURTHER NEEDS. WHITE BOARD UPDATED. CALL LIGHT IN REACH. DAUGHTER AT BEDSIDE.
--- NOTE | 2024-03-05 20:40 | NUR ---
EVENING ASSESSMENT COMPLETE. PT REPORTS 2/10 ABD PAIN. PRN FOR PAIN ADMIN PER EMAR. PT DENIES NAUSEA. RUQ DRESSING INTACT WITH OLD DRAINAGE NOTED. T-TUBE CAPPED. RLQ EDWINA WITH 10 ML SEROSANG DRAINAGE. BOWEL TONES ACTIVE. ABD SOFT. PT DENIES FLATUS. TELE #[address] HR 70'S. SCD'S IN PLACE. DAUGHTER TO STAY THE NIGHT. PT/FAMILY DENIES FURTHER NEEDS. CALL LIGHT IN REACH.
--- NOTE | 2024-03-05 23:02 | NUR ---
IV PUMP ALARMING. ISSUE RESOLVED. NO NEEDS AT THIS TIME. CALL LIGHT IN REACH.
[2024-03-06] VITALS (23 sets, daily range): BP systolic 104–149; BP diastolic 62–89
--- NOTE | 2024-03-06 00:17 | NUR ---
PT RESTING IN BED WITH EYES CLOSED. RESPIRATIONS EVEN. CALL LIGHT IN REACH.
--- NOTE | 2024-03-06 02:16 | NUR ---
PT RESTING WITH EYES CLOSED. AWAKENS EASILY. VS OBTAINED. NO C/O PAIN OR NAUSEA AT THIS TIME. ASSESSMENT COMPLETE. NO FURTHER NEEDS. CALL LIGHT IN REACH.
--- NOTE | 2024-03-06 04:13 | NUR ---
PT RESTING IN BED WITH EYES CLOSED. RESPIRATIONS EVEN. CALL LIGHT IN REACH. DAUGHTER RESTING ON COUCH.
[2024-03-06 05:40] LABS: BASOPHILS 0.8 % (0-2); EOSINOPHILS 0.1 % (0-6); HEMATOCRIT 24.2 % (35.0-50.0); HEMOGLOBIN 7.8 g/dL (12.0-18.0); LYMPHOCYTES 4.4 % (24-44); MCH 21.2 (27-36); MCV 66.3 fl (81-99); MONOCYTES 12.6 % (0-12); NEUTROPHILS 82.1 % (39-80); PLATELET COUNT 157 K/uL (140-440); RBC 3.66 M/ul (4.3-5.7); RDW 15.3 (10.5-15.0)
[2024-03-06 05:51] LABS: ALBUMIN 2.4 g/dL (3.4-5.0); ALBUMIN/GLOBULIN RATIO 0.63 (1.1-2.4); ANION GAP 9.2 (7-21); BUN/CREATININE RATIO 14.85 (6.0-28.6); CALCIUM 8.5 mg/dL (8.5-10.1); CREATININE, SERUM 1.01 mg/dL (0.55-1.02); POTASSIUM 4.2 mmol/L (3.5-5.1); PROTEIN, TOTAL 6.2 g/dL (6.4-8.2)
--- NOTE | 2024-03-06 06:25 | NUR ---
PT AWAKE IN BED USING IS. DENIES PAIN OR NAUSEA. REPORTS FLATUS. DAUGHTER AT BEDSIDE. PT/FAMILY DENIES NEEDS. CALL LIGHT IN REACH.
--- NOTE | 2024-03-06 07:04 | NUR ---
VERBAL REPORT RECEIVED FROM SHAHRIAR CASTRO. PT RESTS IN BED, AWAKE, NO REQUESTS AT THIS TIME.
--- NOTE | 2024-03-06 10:41 | NUR ---
PT RESTS IN BED, LIGHTS ON AND BLINDS OPEN. SCDS ON TO BLE FROM ANKLES TO KNEES. DAUGHTER IN ROOM AT BED SIDE. PT CURRENTLY REPORTS ABDOMINAL PAIN TOLERABLE, REPORTS FLATUS. T-TUBE CAPPED, DRESSING INTACT. HENRY DRAIN BULB COMPRESSED, SEROSANGUINEOUS DRAINAGE NOTED. DRESSINGS TO RUQ INTACT, NO NEW DRAINAGE NOTED. CALL LIGHT IN REACH.
--- NOTE | 2024-03-06 11:54 | OR ---
[facility] [address], [place] [address] Signed DATE OF OPERATION: 03/04/2024 SURGEON: Campbell Comer MD PREOPERATIVE DIAGNOSES: 1. Recent resolved acute pancreatitis (gallstone pancreatitis). 2. Acute calculous cholecystitis with probable common duct stones. 3. Underlying multiple medical problems including paroxysmal atrial fibrillation. POSTOPERATIVE DIAGNOSIS: Acute calculus cholecystitis with choledocholithiasis. PROCEDURES PERFORMED: 1. Laparoscopic cholecystectomy with cholangiogram with conversion to open cholecystectomy. 2. Open common bile duct exploration with extraction of two large distal duct gallstones. 3. Flexible choledochoscopy. BOAT CLEANING SUPERVISOR: Dion Comer MD ANESTHESIA: General endotracheal, Campbell Puentes CRNA. INDICATIONS: This 88-year-old [place] woman is a patient of Dr. Yesi José. She presented to the emergency room on 02/28/2024 with acute gallstone pancreatitis including markedly elevated lipase on ultrasound and CT scan showing markedly inflamed and edematous gallbladder and gallbladder filled with sludge and at least one stone on the CT scan. Her lipase was beyond the limits of the lab in measurement. She was concurrently anticoagulated with Eliquis; she has history of stroke at least seven years ago. The strict indication Eliquis is uncertain, but she had normal sinus rhythm upon her presentation. She was given broad-spectrum antibiotics, bowel rest, and so forth and has surprisingly lowered her liver enzymes to near normal and bilirubin going from 4.6 down to 1.7. An MRCP was performed, which did show distal duct gallstone, most likely. Plans were made for cholecystectomy two days ago, but she developed atrial fibrillation. She was managed by Dr. Madrid and had conversion of her atrial fibrillation and was Electronically Signed By: CAMPBELL COMER MD 03/06/24 1154 PATIENT NAME: EMILIANO SURESH OPERATIVE REPORT DATE OF : [birth year] REPORT #: [id number] PHYSICIAN: CAMPBELL COMER MD PCP: YESI JOSÉ MD REPORT IS CONFIDENTIAL AND NOT TO BE RELEASED WITHOUT AUTHORIZATION [facility] [address], [place] [address] Signed further monitored and yesterday was anticipating operative intervention for acute cholecystitis and possible gallstones of the bile duct, when she developed atrial fibrillation again. This resolved spontaneously. She is now medically ready for cholecystectomy as initially planned. I discussed with use of the portable reeling and tubing machine operator with the patient and her daughter both [place] natives. The risk of operation, which include, but are not limited to bleeding, infection, bile duct injury, need for open procedure, need for common duct exploration, either laparoscopic or open, and other unforeseen complications, particularly given her advanced age and other medical problems. She understands those risks and wished to proceed. FINDINGS: The gallbladder was quite markedly distended and inflamed as would be expected. There was no saponification to suggest advanced pancreatitis by any means. The liver was normal. Initial findings included multiple adhesions of omentum to the gallbladder. Laparoscopic cholecystectomy was undertaken initially showing a very dilated cystic duct. Cholangiogram demonstrated a markedly dilated biliary tree with two distal common duct stones that were quite large. The size of the stones was suggestive that a laparoscopic approach for extraction would be unlikely. On that basis, she was converted to open operation. This allowed for open common duct exploration, extraction of the two obstructing stones. Flexible choledochoscopy showing no other abnormality or residual stones and a completion T-tube cholangiogram, which was normal. She tolerated the procedure well. There was no recurrence of atrial fibrillation during the procedure. PROCEDURE IN DETAIL: The patient was brought to the operating room, given a general endotracheal anesthetic without problem. Antibiotics had been ongoing. The abdomen was prepared with a chlorhexidine solution and draped sterilely. An infraumbilical incision was made and using an open Haydee cannula technique pneumoperitoneum was achieved to a level of 14 mmHg of carbon dioxide gas. Intra-abdominal inspection showed no sign of ascites or carcinomatosis. The gallbladder was obscured from view initially. An epigastric port was placed and with various manipulations, the gallbladder could be identified, which was quite markedly inflamed and distended. There was no saponification in the lesser sac. Two additional trocars were placed on the right side, 5 mm in size. The gallbladder could not be grasped. It was so tensely distended. On that basis, laparoscopic decompression of gallbladder of bilious of green fluid was undertaken. The puncture site was secured with an Endoloop. The gallbladder was grabbed in its midportion and elevated cephalad and retracted laterally. Using blunt electrocautery dissection, the triangle of Calot was dissected free. A surprisingly dilated cystic duct was identified, but clearly it was the cystic duct. The critical view of safety Electronically Signed By: CAMPBELL COMER MD 03/06/24 1154 PATIENT NAME: EMILIANO SURESH OPERATIVE REPORT DATE OF : [birth year] REPORT #: [id number] PHYSICIAN: CAMPBELL COMER MD PCP: YESI JOSÉ MD REPORT IS CONFIDENTIAL AND NOT TO BE RELEASED WITHOUT AUTHORIZATION [address] [address] Signed well defined. The clip was applied across the gallbladder cystic duct junction and a transverse choledochotomy made in the cystic duct. A consider amount of bilious fluid egressed from the choledochotomy indicating the biliary tree under pressure. Using the GamePix type cholangiocatheter system, intraoperative cholangiography was undertaken with surgeon-directed fluoroscopy. Free flow of contrast was noted in the biliary tree was quite markedly dilated. In the distal duct were two very large stones, which in my opinion would unlikely be extracted through a transcystic duct laparoscopic common duct exploration. Rather than hazard further anesthesia time, a more expedient way was deemed to simply convert to open operation to provide definitive stone extraction. The trocars were removed under direct visualization. The infraumbilical fascial incision was reapproximated with interrupted 0 Vicryl suture. A right subcostal incision was made connecting to the trocar sites together. The subcutaneous tissue was divided with electrocautery. Anterior rectus sheath was incised and the rectus muscle divided transversely. The posterior rectus sheath was elevated and incised. The abdomen entered. Using a Bookwalter retractor system, optimal exposure was obtained. A ring clamp was applied to the apex of the gallbladder. The gallbladder was dissected free from the liver with blunt electrocautery dissection ultimately isolating the cystic duct. Two large clips were applied across the cystic duct with cystic duct then transected and the gallbladder passed for pathology. One large stone and a considerable amount of sludge was noted in the gallbladder. The Bookwalter tractor arms were adjusted and a very dilated common duct was easily identified. The thin peritoneum overlying was incised transversely. Dissection was carried inferiorly to be as close to the duodenum as possible. Two stay stitch stitches of 4-0 PDS suture were applied on the axial direction of the common duct and the duct was incised with an 11 blade, allowing for egress of bilious fluid. Irrigation was undertaken and a single stone was noted at that site. It was removed from the duct. Further irrigation did not allow for any other stones to be produced. A Veronica #5 biliary catheter was passed down the common duct and engaged some obstructive lesion and it was gently withdrawn and the stone appeared into place. The second stone was thus removed. Irrigation was undertaken more fully. There was no bleeding or other problems. The flexible choledochoscope was passed antegrade to clear the distal duct. There was no sign of retained stone, bleeding, neoplasm, or other problem. The scope was inserted more proximally, identifying segmental bile ducts. The latex 14-Turkish T-Tube was cut to the appropriate configuration and secured in the common duct. The choledochotomy was secured with interrupted 4-0 PDS suture. Irrigation of the T-tube showed no sign of leakage. Electronically Signed By: CAMPBELL COMER MD 03/06/24 1154 PATIENT NAME: EMILIANO SURESH OPERATIVE REPORT DATE OF : [birth year] REPORT #: [id number] PHYSICIAN: CAMPBELL COMER MD PCP: YESI JOSÉ MD REPORT IS CONFIDENTIAL AND NOT TO BE RELEASED WITHOUT AUTHORIZATION [address] [address] Signed A T-tube cholangiogram was then performed showing good flow into the biliary tree and emptying into the duodenum with no problematic obstructive material. The T-tube was delivered through the abdominal wall through one of the previous trocar sites and through another trocar site, a 7 mm flat Jose Roberto drain was placed in the subhepatic space. The drain was secured to the skin with nylon suture as was the T-tube. Irrigation was undertaken more fully. Plans were made for closure. The posterior rectus sheath was reapproximated with running #1 PDS suture. The muscular layer irrigated. The anterior rectus sheath reapproximated with running bidirectional PDS suture also. Subcutaneous tissue was irrigated. The skin was closed with running subcuticular 3-0 Vicryl. Infraumbilical incision was the only one that remained and was secured with interrupted 3-0 Vicryl. Steri-Strips were applied. Next, scope dressing was applied to the subcostal incision and the drain and T-tube secured to the abdominal wall with the OpSite. She was extubated and transferred to the recovery room in good condition having suffered no complications. Sponge, needle, and instrument counts were as correct x3. MD YUSRA Boyce/MODL /[id number] cc: MD Dr. Dion Handley [place], [place] Copies: YESI JOSÉ MD ~ Electronically Signed By: CAMPBELL COMER MD 03/06/24 1154 PATIENT NAME: EMILIANO SURESH OPERATIVE REPORT DATE OF : [birth year] REPORT #: [id number] PHYSICIAN: CAMPBELL COMER MD PCP: YESI JOSÉ MD REPORT IS CONFIDENTIAL AND NOT TO BE RELEASED WITHOUT AUTHORIZATION
--- NOTE | 2024-03-06 12:29 | NUR ---
VERBAL REPORT PROVIDED TO SHAHRIAR GRAY.
--- NOTE | 2024-03-06 14:35 | NUR ---
Patient in bed resting, no distress. Patient is on phone with her daughter, she has no distress. Daughter on phone with patient, she reports patient's pain is tolerable and no nausea. T-tube is clamped. Jose Roberto drain has minimal serosang drainage noted, closed to suction. Patient is smiling with no distress. Call light within reach of patient.
--- NOTE | 2024-03-06 15:50 | NUR ---
CHANGED PATIENT TELE BATTERY. FAMILY MEMBER IN ROOM.
--- NOTE | 2024-03-06 16:00 | NUR ---
PATIENT CALLED JUST WENT IN ROOM. PATIENT NEEDED TO GO TO THE BATHROOM. PATIENT USED HER WALKER WHILE WE WALKED INTO THE BATHROOM TOGETHER. PATIENT IS NOW IN BED. FAMILY MEMBER IN ROOM.
--- NOTE | 2024-03-06 17:56 | NUR ---
Patient in bed a&o x3, no acute distress. Patient's family at bedside visiting with her. Patient reports her pain is tolerable. Personal supplies and call light within reach.
--- NOTE | 2024-03-06 18:18 | NUR ---
PATIENT ASKED FOR A HOT PACK. BROUGHT HER ONE. FAMILY MEMBER IN ROOM.
--- NOTE | 2024-03-06 19:10 | NUR ---
DR. COMER NOTIFIED OF FINE CRACKLES IN LLL AND RLL, PT TOLERATING PO INTAKE WELL. NEW ORDER RECEIVED TO D/C CONTINUOUS FLUIDS.
--- NOTE | 2024-03-06 19:42 | NUR ---
REPORT RECEIVED FROM DAY SHIFT RN. PT SITTING IN RECLINER ALERT AND ORIENTED. OSTEOPATHIC NEUROLOGIST REPORTS TELE CHANGES. HR UP TO 130'S AND LOW 40'S. VS OBTAINED, WNL. PT ASYMPTOMATIC. PT UP TO BSC WITH SBA TO VOID. BACK TO BED. MD NOTIFIED. TELEPHONE ORDERS RECEIVED FOR STAT EKG VERIFIED WITH READBACK METHOD. DAUGHTER AT BEDSIDE TO INTERPRET. NO FURTHER NEEDS. CALL LIGHT IN REACH.
--- NOTE | 2024-03-06 20:10 | NUR ---
UPDATED ON EKG RESULTS. VERBAL ORDERS RECEIVED TO RECORD PAUSES AND "CONTINUE TO MONITOR" VERIFIED WITH READBACK METHOD. CCU UPDATED.
[2024-03-06] MEDS ORDERED: METOPROLOL TARTRATE 5 MG/5 ML VIAL IV ONE (20:45)
--- NOTE | 2024-03-06 20:45 | NUR ---
NOTIFIED PT HR UP TO 170'S. NEW TELEPHONE ORDERS RECEIVED VERIFIED WITH READBACK METHOD.
--- NOTE | 2024-03-06 20:53 | NUR ---
IN FOR MED ADMINISTRATION. PT ATTEMPTING OOB WITH DAUGHTER ASSIST. EDUCATION PROVIDED. PT BACK TO BED. HR UP TO 180'S. PT REPORTS SOB. RR 22. SpO2 94% ON RA. 2L/NC PLACED FOR COMFORT. METOPROLOL ADMIN PER ORDER. RN FARM MANAGER AND RT TO ROOM TO ASSIST WITH TRANSFERRING PT TO CCU.
[2024-03-06] MEDS ORDERED: DILTIAZEM HCl/D5W 125 ML IV ONE (21:03)
--- NOTE | 2024-03-06 21:05 | NUR ---
PT TRANSFERRED TO CCU PER EATING DISORDER PSYCHOLOGIST. DAUGHTER AND ALL PERSONAL BELONGINGS IN TOW.
--- NOTE | 2024-03-06 21:08 | NUR ---
ALISHA MOVED FROM MD TO CCU. MD NOTIFIED OF INCREASING AND SUSTAINED HR. NEW VERBAL ORDER FOR IV DILT DRIP
--- NOTE | 2024-03-06 21:08 | NUR ---
DR. COMER UPDATED ON PATIENT TRANSFER.
--- NOTE | 2024-03-06 21:08 | NUR ---
PATIENT MOVED FROM MD TO CCU. MD NOTIFIED OF INCREASING AND SUSTAINED HR. NEW VERBAL ORDER FOR IV DILT DRIP
[2024-03-06] MEDS ORDERED: DILTIAZEM HCl/D5W 125 ML IV SCH (21:15)
--- NOTE | 2024-03-06 21:18 | NUR ---
PATIENT IS RESTING IN BED WITH EYES CLOSED, RR 25. NAD NOTED. PATIENTS DILT DRIP TITRATED PER PROTOCOL. DAUGHTER AT BEDSIDE AND UPDATED ON PLAN OF CARE AND ALL QUESTIONS ANSWERED.
--- NOTE | 2024-03-06 22:02 | NUR ---
PATIENT UP TO BSC A SBA. PATIENT ABLE TO VOID. PATIENT DENIES ANY SOB OR CHEST PAIN WHEN UP. PATIENT IS BACK IN BED RESTING. PATIENT DENIES ANY FURTHER NEEDS. CALL LIGHT IN REACH. DILT INFUSING PER ORDER.
--- NOTE | 2024-03-06 22:26 | NUR ---
PATIENT IS RESTING IN BED WITH EYES CLOSED, RR24. NAD NOTED. DAUGHTER AT BEDSIDE AND DENY ANY NEEDS. CALL LIGHT IN REACH.
--- NOTE | 2024-03-06 22:57 | NUR ---
PATIENT UP TO [facility] A SBA. PATIENT ABLE TO VOID. PATIENT IS BACK IN BED RESTING. PATIENT DENIES ANY PAIN OR SOB WHEN UP. INCREASED HR WHEN UP AND RETURNS TO 90-105 WHEN BACK AT REST. PATIENT HAS SCDS IN USE. PATIENT DENIES ANY ABD PAIN. PATIENT DENIES ANY NEEDS. CALL LIGHT IN REACH.
[2024-03-07] VITALS (20 sets, daily range): BP systolic 92–130; BP diastolic 52–78
--- NOTE | 2024-03-07 00:38 | NUR ---
PATIENT IS RESTING IN BED WITH EYES CLOSED, RR 20. NAD NOTED. DILT DRIP TITRATED PER PROTOCOL-SEE MEDICATION FLOW SHEET. NO NEEDS NOTED. CALL LIGHT IN REACH.
--- NOTE | 2024-03-07 01:14 | NUR ---
REPORT FORM NIK Solomon RN TO ASSUME CARE AT THIS TIME. PATIENT IS BACK IN AFIB RATE CONTROLLED AT THIS TIME.
--- NOTE | 2024-03-07 01:33 | NUR ---
PATIENT UP TO BEDSIDE COMMODE ONE PERSON ASSIST FOR LINE MANAGEMENT. PATIENT SCORED 6/10 FACE SCALE FOR PAIN AT ABD. PATIENT PAIN ASSESSMENT PATIENT SAID, "YES." AND NODDED HER HEAD WHEN ASKED IF SHE WOULD LIKE PAIN MEDICATIONS. IV DILAUDID 0.5MG IV PRN ADMINISTERED FOR SEVERE PAIN.
--- NOTE | 2024-03-07 02:31 | NUR ---
PATIENT RESTING IN BED AT THIS TIME, REPORTS PAIN IS BETTER, HR 74/MIN, CURRENTLY AFIB.
--- NOTE | 2024-03-07 03:10 | NUR ---
PATIENT RESTING QUIETLY IN BED EYES CLOSED RESPIRATORY RATE 16/MIN. NO DISTRESS NOTED AT THIS TIME. PATIENT REMAINS IN A-FIB RATE CONTROLLED 76/MIN AT THIS TIME.
[2024-03-07 05:44] LABS: HEMATOCRIT 25.8 % (35.0-50.0); HEMOGLOBIN 8.3 g/dL (12.0-18.0); MCH 21.1 (27-36); MCHC 32.3 g/dl (30-36); MCV 65.4 fl (81-99); PLATELET COUNT 172 K/uL (140-440); RBC 3.95 M/ul (4.3-5.7); RDW 15.3 (10.5-15.0)
[2024-03-07 05:54] LABS: ALBUMIN 2.2 g/dL (3.4-5.0); ALBUMIN/GLOBULIN RATIO 0.58 (1.1-2.4); ANION GAP 10.7 (7-21); BILIRUBIN, TOTAL 1.1 ng/dL (0.2-1.0); BUN/CREATININE RATIO 11.25 (6.0-28.6); CREATININE, SERUM 0.8 mg/dL (0.55-1.02); POTASSIUM 3.7 mmol/L (3.5-5.1)
[2024-03-07 06:03] LABS: BANDS, MANUAL DIFF 1; LYMPHOCYTES, MANUAL DIFF 12; MONOCYTES, MANUAL DIFF 2; NEUTROPHILS, MANUAL DIFF 85
--- NOTE | 2024-03-07 06:35 | NUR ---
CALLED TO REPORT PATIENT UPDATE STATUS AND LABS INCLUDING MAGNESIUM 1.5 THIS AM, NEW ORDER FOR 2G MAGNESIUM. DISCUSSED PATIENT HOME MEDICATION OF ELIQUIS, AND PATIENT REGIMEN SHE WAS ON FOR CARDIZEM OVER COURSE OF HOSPITAL STAY. ALSO UPDATED ON PATIENT CURRENT RATE CONTROLLED IN A-FIB AT THIS TIME ON 10MG/HOUR OF DILTAZEM DRIP INFUSION.
[2024-03-07] MEDS ORDERED: MAGNESIUM SULFATE 2 GM/50 ML BAG IV ONE (06:45)
--- NOTE | 2024-03-07 08:08 | NUR ---
AT RN STATION - CURRENT POC DISCUSSED. PLAN TO KEEP ON DILT DRIP AT THIS TIME AND CONTINUE TO MONITOR RATE, CURRENT RATE 10 MG/HR. BP STABLE. PT REMAINS IN AFIB AT THIS TIME WITH OCCASIONAL FLUTTER AND PAUSES. THIS WAS REVIEWED WITH MD. PT RESTING IN BED WITH EYES CLOSED, RR EVEN AND UNLABORED. DAUGHTER ASLEEP ON COUCH. MAG INFUSION COMPLETE, RIGHT AC SITE SALINE LOCKED.
[2024-03-07] MEDS ORDERED: dilTIAZem HCL 120 MG CAPCR PO SCH (09:00)
--- NOTE | 2024-03-07 10:07 | NUR ---
PT UP TO BSC AND THEN CHAIR - HR NOTED HIGH 90 WITH THIS ACTIVITY. PT STATES SOME DIZZINESS WITH AMBULATION - ENCOURAGED DAUGHTER TO CALL STAFF WHEN UP TO PREVENT FALLS. DAUGHTER PERFORMING AM CARES. PT DENIES NAUSEA OR PAIN MEDICATION AT THIS TIME. EDWINA EMPTIED FOR 40ML OF SERO/SANG FLUID. ABD SOFT WITH ACTIVE BT. SCD'S REMOVED ONCE UP TO CHAIR. MD NOTED BP AND RATE ON MONITOR WITH ACTIVITY - VERBAL ORDER RECEIVED FOR 180MG PO CARDIZEM AND STOP GTT AFTER 1 HOUR.
[2024-03-07] MEDS ORDERED: dilTIAZem HCL 180 MG CAPCR PO SCH ×2 (10:19→21:00)
--- NOTE | 2024-03-07 11:23 | NUR ---
DILT GTT TURNED OFF AT THIS TIME, PT SALINE LOCKED. DENIES PAIN OR NAUSEA CURRENTLY.
--- NOTE | 2024-03-07 13:43 | NUR ---
received report from nurse all questions ansered.
--- NOTE | 2024-03-07 14:00 | NUR ---
dr johnson into see pt, AGUSTINA IN AT THIS TIME TO TRANSLATE FOR STAFF. EDWINA REMOVED AT THIS TIME. NEW OP-SITE PLACED TO SURCURE T-TUBE. AND NEW 2X2 AND BANDAID PLACED OVER EDWINA SITE AREA. PT WAS UP TO BEDSIDE COMMODE AND VOIDED AND BACK TO BED.
--- NOTE | 2024-03-07 16:15 | NUR ---
PT UP TO BEDSIDE COMMODE AT THIS TIME VOIDED AND BACK TO BED. DENIES PAIN AT THIS TIME TRANSLATED FROM GRANDSON. PT IS DRINKING TEA FROM HOME THAT THE GRANDSON BROUGHT IN. SHE ALSO ATE SOME SOUP THAT HE BROUGHT IN. HEART RATE INCREASES TO 100'S WHEN UP, BUT DECREASES BACK TO THE 80'S WHEN SETTLED IN BED.
--- NOTE | 2024-03-07 16:55 | NUR ---
GRANDSON LEFT AT THIS TIME AND DAUGHTER BACK TO HELP WITH PT AND TRANSLATION. SHE BROUGHT IN HOME FOODS FOR PT ALSO. PT SITTING UP IN BED TO DINNER. NO C/O'S AT THIS TIME
--- NOTE | 2024-03-07 17:38 | NUR ---
PT UP TO BEDSIDE COMMODE. HEART RATE UP TO THE 155. PT DENIES CHEST PAIN, RR UP TO 34 AND SPO2 DECREASED TO 88. O2 PLACED AT 2L'S FOR INCREASED OXYGEN DEMAND FROM BEING UP. NOW THAT PT IS BACK IN BED HEART RATE IN THE 90-100'S AND RESP RATE 24 SPO2 98% ON 2L'S NC. DAUGHTER ASKED PT FOR RAILWAY SWITCHMAN IF SHE WAS HAVING CHEST SERA WHILE ON COMMODE, IT WAS REPORTED NO. AND THEN ASKED IF SHE IS HAVING ABD PAIN, NO! AND REFUSES PAIN MEDICATIONS AT THIS TIME.
[2024-03-07] MEDS ORDERED: LACTATED RINGER'S 1,000 ML IV ONE (18:15)
--- NOTE | 2024-03-07 18:15 | NUR ---
CALL INTO DR KING NEW ORDERS RECEIVED. STARTED LR 1 LITER BOLUS AT THIS TIME.
--- NOTE | 2024-03-07 18:35 | NUR ---
LR BOLUS INFUSING AT THIS TIME, HEART RATE 106-122 RESP 22 AND SPO2 99% AT 2L'S NC. PT IS IN BED DENIES ABD PAIN OR CHEST PAIN. DAUGHTER RAINS AT THE BEDSIDE, PT LYING QUITLEY IN BED HOB AT 45 DEGREES.
--- NOTE | 2024-03-07 19:34 | NUR ---
REPORT FROM RADHA RN TO ASSUME PATIENT. PATIENT UP TO BEDSIDE COMMODE TO VOID, ONE PERSON ASSIST FOR LINE MANAGEMENT. PATIENT CONVERTED TO NSR DURING REPORT.
--- NOTE | 2024-03-07 21:04 | NUR ---
PATIENT BACK TO BED AFTER UP TO BEDSIDE COMMODE, SHE AGREES TO TAKE TYLENOL PRN FOR BASE PAIN MANAGEMENT, HS MEDICATION PASS COMPLETE.
[2024-03-08] VITALS (8 sets, daily range): BP systolic 90–135; BP diastolic 51–79
--- NOTE | 2024-03-08 01:39 | NUR ---
PATIENT UP TO BEDSIDE COMMODE VOIDED 300ML YELLOW URINE WITH ONE PERSON STANDBY ASSIST FOR CORD MANAGEMENT. PATIENT TOLERATED ACTIVITY WELL, SHE REPORTS NO PAIN AT THIS TIME, NO NAUSEA. DAUGHTER IN ROOM.
--- NOTE | 2024-03-08 02:35 | NUR ---
PATIENT RESTING IN BED, EYES CLOSED. PATIENT ALERT TO RN AT BEDSIDE TO ATTACH BLOOD PRESSURE CUFF FOR V/S. PATIENT REPORTS NO PAIN OR NAUSEA. CALL LIGHT IN REACH, PATIENTS DAUGHTER RESTING ON COUCH IN ROOM.
[2024-03-08 05:37] LABS: HEMATOCRIT 23.5 % (35.0-50.0); HEMOGLOBIN 7.8 g/dL (12.0-18.0); MCH 21.6 (27-36); MCV 65.3 fl (81-99); PLATELET COUNT 167 K/uL (140-440)
[2024-03-08 05:41] LABS: ANION GAP 10.4 (7-21); BUN/CREATININE RATIO 10.38 (6.0-28.6); CREATININE, SERUM 0.77 mg/dL (0.55-1.02); MAGNESIUM 1.9 mg/dL (1.8-2.4); POTASSIUM 3.4 mmol/L (3.5-5.1)
[2024-03-08 06:13] LABS: BANDS, MANUAL DIFF 2; BASOPHILS, MANUAL DIFF 2; EOSINOPHILS, MANUAL DIFF 1; LYMPHOCYTES, MANUAL DIFF 11; MONOCYTES, MANUAL DIFF 3; NEUTROPHILS, MANUAL DIFF 81
[2024-03-08] MEDS ORDERED: APIXABAN 5 MG TAB PO SCH (09:17)
--- NOTE | 2024-03-08 09:39 | NUR ---
PATIENT EMILIANO ARRIAGA IS NOTED TO BE IN GOOD SPIRITS THIS AM. HER DAUGHTER MAXIMINO REMAINS AT BEDSIDE AND THEY BOTH DECLINE THE INDUCTION COORDINATION POWER ENGINEER. MEDICATION PROVIDED. PLAN OF CARE REVIEWED WITH PATIENT AND DAUGHTER. THEY ARE BOTH ON BOARD AND HAPPY WITH THEIR CARE. NEURO- MOVES ALL EXTREMITIES EQUALLY, DENIES PAIN, PERRL, UP TO RESTROOM WITH WALKER RESP- 2LNC, SPO2 92, BREATH SOUNDS CLEAR, WEAK COUGH CARDIAC- SR, 65-80 WITH ACTIVITY, AFEBRILE, NO EDEMA GI/- AMBULATES TO RESTROOM, NO BOWEL MOVEMENT, NORMOACTIVE BOWEL TONES INT- SURGICAL SITES INTACT, UMBILICUS NOTED TO HAVE SOME SHADOWING, RIGHT SIDED T TUBE CAPPED, SITE HAS OLD SANGUINOUS DRAINAGE NOTED LDA- PATENT AND INTACT
--- NOTE | 2024-03-08 10:07 | NUR ---
Ellen Escalona is up in her chair when I enter the room. Her daughter is in the room with her and they are conversing in their language. Daughter states that she is very happy with the care her mother has received while in the hospital and she states no concerns in regards to taking her mother home when her mother is ready for discharge. Ellen Escalona is independantly eating her breakfast, respirations are even and unlabored. No distress is noted. 02 sats 93 percent while eating breakfast on RA. Daughter denies questions or concerns at this time.
--- NOTE | 2024-03-08 11:06 | NUR ---
IMM letter reviewed with patient and her daughter, daughter continues to share that they have no concerns regarding their discharge when the doctor feels they are ready to go home.
--- NOTE | 2024-03-08 11:10 | NUR ---
EMILIANO ARRIAGA AMBULATED 1 COMPLETE LAP AROUND CCU AND MED/SURG UNIT. SHE UTILIZED A FRONT WHEEL WALKER AND WAS ACCOMPANIED BY HER DAUGHTER MAXIMINO. VSS PER MONITOR. RA. SHE IS NOW BACK IN THE ROOM SITTING IN THE BED. DENIES PAIN OR DISCOMFORT
--- NOTE | 2024-03-08 14:25 | NUR ---
AMBULATED PATIENT DUN DI TO RESTROOM WITH FRONT WHEEL WALKER. UNMEASURED VOID. LUNCH WAS ENJOYED THIS HOUR. 50% CONSUMED WHILE SITTING AT EDGE OF BED. SHE IS CURRENTLY SITTING IN THE CHAIR AND VISITING WITH HER GRANDSONS.
--- NOTE | 2024-03-08 16:40 | NUR ---
EMILIANO ARRIAGA IS RESTING IN THE RECLINER AND ENDORSES COMFORT. SHE DENIES NEEDS AT THIS TIME. VSS AND WDL PER MONITOR.
--- NOTE | 2024-03-08 18:21 | NUR ---
EMILIANO ARRIAGA IS AMBULATING IN THE HALLWAY WITH DAUGHTER MAXIMINO. SHE APPEARS COMFORTABLE AND DENIES ANY NEEDS AT THE MOMENT NEURO- ALERT AND ORIENTED, DENIES PAIN, PERRL, MOVES ALL EXTREMITIES, FWW TO AMBULATE, 1P ASSIST RESP- RA, BREATH SOUNDS CLEAR/DIMINISHED, WEAK COUGH CARDIAC- SR-SB, AFEBRILE, NO EDEMA GI/- GOOD APPETITE, PREFERS HOMEMADE FOODS BROUGHT IN BY FAMILY, VOIDS IN TOILET, PASSING FLATUS INT- SEE ASSESSMENT MS HOUSE CONVENIENCE
--- NOTE | 2024-03-08 19:40 | NUR ---
handoff report received from SHAHRIAR mcleod. patient sitting up awake in chair with daughter in room. no needs at this time. call light within reach.
--- NOTE | 2024-03-08 21:29 | NUR ---
patient sitting up awake in chair, with daughter in room. patient provided with fresh ice water. assessment complete. patient denies any pain at this time. vital signs stable. no needs at this time. call light within reach.
--- NOTE | 2024-03-08 23:15 | NUR ---
PATIENT AMBULATES TO BATHROOM WITH X1 PERSON STANDBY ASSIST FOR CORD MANAGEMENT. PATIENT STEADY ON FEET. PATIENT VOIDS 300cc AND THEN AMBULATES BACK TO BED. PATIENT DENIES ANY PAIN OR NAUSEA AT THIS TIME. BED IN LOW AND LOCKED POSITION, CALL LIGHT WITHIN REACH.
--- NOTE | 2024-03-09 01:05 | NUR ---
patient resting in bed with eyes closed, respirations even and unlabored. patient daughter resting on couch. no needs at this time. call light within reach.
[2024-03-09 02:20] VITALS: BP 121/64
--- NOTE | 2024-03-09 02:25 | NUR ---
patient wakes when placing BP cuff to obtain vital signs. patient vital signs stable. patient remains in NSR. daughter Stacey remains at bedside. no needs at this time. call light within reach.
--- NOTE | 2024-03-09 04:30 | NUR ---
PATIENT RESTING IN BED WITH EYES CLOSED, RESPIRATIONS EVEN AND UNLABORED. NO NEEDS AT THIS TIME. PATIENT DAUGHTER REMAINS AT BEDSIDE. CALL LIGHT WITHIN REACH.
[2024-03-09 06:20] VITALS: BP 133/66
--- NOTE | 2024-03-09 06:35 | NUR ---
patient states she is having 2/10 abdominal pain. PRN Tylenol given per EMAR. patient provided with fresh ice water. patient vital signs stable. no further needs at this time. daughter remains at bedside. call light within reach.
--- NOTE | 2024-03-09 08:20 | NUR ---
Patient resting in bed with eyes closed. Breakfast tray delivered. Patient in no apparent distress with even and unlabored respirations noted. Pt daughter at bedside, attentive to patient and engaged in care. No needs at this time, will continue plan of care.
[2024-03-09 08:42] VITALS: BP 129/69
[2024-03-09] MEDS ORDERED: DILTIAZEM 24HR180 M1 PO (09:17)
[2024-03-09] MEDS ORDERED: HYDROCODON-ACE1 EA10 PO (09:18)
[2024-03-09] MEDS ORDERED: ACETAMINOPHEN500 MG PO (09:18)
--- NOTE | 2024-03-09 09:49 | NUR ---
ORDERS, H&P, DC SUMMARY FAXED TO [facility] FOR WALKER. CLEARVIEW INFORMATION PROVIDED WELL TO PATIENT'S DAUGHTER FOR BACKUP IF IT IS DAYS BEFORE WALKER WILL BE DELIVERED.
--- NOTE | 2024-03-09 10:30 | NUR ---
PATIENT DISCHARGED AFTER MD ROUNDING. PATIENT A+O ON ROOM AIR, VSS, AFEBRILE. RR EVEN AND UNLABORED. NSR HR IN 70'S. MINIMAL ABD PAIN AT THIS TIME WITH T TUBE IN PLACE, DRESSING C/D/I, INSTRUCTIONS PROVIDED FOR DRESSING CARES AT HOME. ALL PERSONAL BELONGINGS RETURNED. PHARMACY IN ROOM TO DISCUSS MEDS, SCRIPT GIVEN FOR RX PICKUP, FWW RX PROVIDED. DAUGHTER VERBALIZES UNDERSTANDING OF ALL DC INSTRUCTIONS.
--- NOTE | 2024-03-09 12:04 | EKG ---
[facility] [address] [facility] [place] [address] Signed Poor data quality, interpretation may be adversely affected Atrial fibrillation with rapid ventricular response ST \T\ T wave abnormality, consider anterior ischemia Abnormal ECG No previous ECGs available Confirmed by Mj Caceres MD ([id number]) on 03/09/2024 12:04:22 PM Electronically Signed By: MJ CACERES 03/09/24 1204 PATIENT NAME: EMILIANO SURESH CORINA Electrocardiogram DATE OF : [birth year] PHYSICIAN: MJ CACERES REPORT #: [id number] REPORT IS CONFIDENTIAL AND NOT TO BE RELEASED WITHOUT AUTHORIZATION
--- NOTE | 2024-03-09 14:38 | PATH ---
[facility] [address] [facility] [address] [facility] [place] [address] Signed SPECIMEN(S): A GALLBLADDER STONE SPECIMEN SOURCE: A. GALLBLADDER STONE CLINICAL HISTORY: Acute calculus cholecystitis FINAL PATHOLOGIC DIAGNOSIS: Gallbladder, cholecystectomy: - Acute and chronic calculous cholecystitis - One reactive lymph node BRP MICROSCOPIC EXAMINATION: Histologic sections of all submitted blocks are examined by light microscopy. These findings, together with the gross examination, support the pathologic diagnosis. GROSS DESCRIPTION: The specimen, labeled and designated "Steve, gallbladder with stone," is received in formalin and consists of Specimen: Previously opened gallbladder. Dimensions: 9.2 x 3.5 x 2.0 cm. Serosa: [place]-ritter to violaceous and smooth. Cystic Duct: Unobstructed, margin inked black and shaved. Calculi: Three black-brown multifaceted/rounded calculi (0.7-1.9 cm in greatest dimension, and 2.0 x 1.9 x 1.3 cm in aggregate). Mucosa: Ritter and bumpy/roughened. Wall thickness: 0.2-0.5 cm. Lymph node: Two yellow-ritter possible pericystic lymph nodes (0.7-0.8 cm in greatest dimension). The tissues are submitted in toto. Additional: None. Take Up Supervisor sections are submitted in (A1). VB (under the direct supervision of a pathologist) The Gross Description was prepared using a voice recognition system. The report was reviewed for accuracy; however, sound-alike word errors, addition and/or deletions may occur. If there is any question about this report, please contact Client Services. ADDITIONAL NOTES: PATIENT NAME: EMILIANO SURESH PATHOLOGY DATE OF : [birth year] REPORT #: [id number] PHYSICIAN: WINNIE HOGUE PCP: YESI SILVER MD REPORT IS CONFIDENTIAL AND NOT TO BE RELEASED WITHOUT AUTHORIZATION [address], [place] [address] Signed Immunohistochemical and/or in situ hybridization studies if performed in this case included appropriate positive controls that reacted as expected. This test was developed and its performance characteristics determined by [email or web address]. It has not been cleared or approved by the U.S. Food and Drug Administration. The FDA has determined that such clearance or approval is not necessary. This test is used for clinical purposes. It should not be regarded as investigational or for research. [email or web address] is certified under the Clinical Laboratory Improvement Amendments of 1988 (CLIA) as qualified to perform high complexity clinical laboratory testing. PERFORMING LABORATORY: Technical component was performed by [facility], [address] [place] [address] (CLIA# [id number]). Professional interpretation was performed by [facility] - [facility] [place], [address] [place] [address] (CLIA#: [id number]). Diagnostician: Tobias Ramos MD Pathologist Electronically Signed 03/09/2024 Copies: ~ PATIENT NAME: EMILIANO SURESH PATHOLOGY DATE OF : [birth year] REPORT #: [id number] PHYSICIAN: WINNIE HOGUE PCP: YESI SILVER MD REPORT IS CONFIDENTIAL AND NOT TO BE RELEASED WITHOUT AUTHORIZATION
--- NOTE | 2024-03-11 13:28 | DS ---
[facility] [address], [place] [address] Signed ADMISSION DATE: 02/28/2024 DISCHARGE DATE: 03/09/2024 REASON FOR ADMISSION: Gallstone pancreatitis and acute cholecystitis with choledocholithiasis. HISTORY: This 88-year-old cantonese ([place]ian) woman presented to the emergency room, accompanied by her daughter. The patient and daughter live locally currently; the daughter speaks Grenadian reasonably well, the mother none at all. She presented to the emergency room with bouts of emesis several days in a row with epigastric and substernal pain, was evaluated by Dr. Sandoval and ultimately Dr. Patrick, findings of white count elevation of 16,000 with Chem panel showed an elevated bilirubin of 2.8 and lipase greater than 375. Abdominal ultrasound confirming gallstones with gallbladder sludge, marked gallbladder wall thickening and pericholecystic fluid as well as positive sonographic Perea sign. The bile duct at presentation was [address] scan showed marked inflammatory change in the region of the alisa hepatis including the gallbladder itself. Findings most consistent with acute cholecystitis and concurrent acute pancreatitis. She was admitted for further evaluation and care. Additionally, notable was a patient medication included Eliquis 2.5 mg p.o. b.i.d., though she did not have atrial fibrillation on EKG. She has had a stroke seven years ago according to her daughter. She is a patient of Dr. Yesi José. Her medications at admission included Eliquis, lisinopril, and metoprolol. PERTINENT PHYSICAL EXAMINATION: GENERAL: Showed a reserved, aged [place]vian woman with a BMI of 23.3. HEENT: Mucous membranes are markedly dry. Trachea midline. CHEST: Clear. HEART: Regular, and normal sinus rhythm on the monitor. ABDOMEN: Nondistended. There is no ascites. There is tenderness in the epigastric area, but no palpable mass and no visible ascites. HOSPITAL COURSE: The patient was admitted with probable acute calculous cholecystitis and concurrent hyperlipasemia consistent with acute pancreatitis. Her underlying Eliquis use was related to the prior stroke, though not known to have atrial fibrillation necessarily. She was given fluid resuscitation, IV antibiotics, and monitor closely. Her bilirubin and liver enzymes increased with bilirubin as high as 4.4, AST 407, ALT 223. Lipase decreasing to 310 on the first hospital day. Electronically Signed By: CAMPBELL CMOER MD 03/11/24 1328 PATIENT NAME: EMILIANO SURESH DISCHARGE SUMMARY DATE OF : [birth year] REPORT #: [id number] PHYSICIAN: CAMPBELL COMER MD PCP: YESI JOSÉ MD REPORT IS CONFIDENTIAL AND NOT TO BE RELEASED WITHOUT AUTHORIZATION [facility] [address], [place] [address] Signed She had progressive improvement. Consultation was undertaken with the hospitalist service given her underlying other medical problems. She was initially seen by Dr. Metz. Her anticoagulant effect of Eliquis was allowed to resolve without any reversal. It was learned by Dr. Metz. The patient did have complicated pancreatitis episode in [facility] approximately seven years ago, in someway requiring a stent and drainage. She has had no additional episodes of pancreatitis until this time. Hepatitis panel was obtained given her cultural background from [place], which was negative for hepatitis A, B, and C. She had progressive clinical improvement. Her liver enzymes and lipase essentially returned to normal. On March 04, 2024, she underwent laparoscopic evaluation including initial stage of cholecystectomy with cholangiogram. Cholangiogram demonstrated two very large stones within a very dilated common bile duct, which were thought likely to be extracted through a transcystic duct, laparoscopic common duct exploration. On that basis, she was converted to an open cholecystectomy with open common bile duct exploration. Extraction of two large distal common duct gallstones was accomplished and flexible choledochoscopy assured that there were no remaining stones or debris. A completion T-tube cholangiogram confirmed this as well. Her bile bag was left in dependent drainage via the T-tube and an accessory drain placed was also monitored. The drain did not show any additional bile leakage and was ultimately removed. Her T-tube was capped off, which she tolerated well. Monitoring of liver enzymes showed progressive improvement. She was advanced on the diet immediately after operation, which she tolerated well. By day of discharge, she is ambulating well. Incision is healing with Steri-Strips in place. T-tube is well secured to the skin. The accessory drain has been removed. An additional T-tube cholangiogram postoperatively was not obtained. She tolerated occlusion of the T-tube by capping it without any symptoms. Of special note, during course of hospitalization, she did have several episodes of atrial fibrillation, which were controlled predominantly by diltiazem drip and with spontaneous conversion to normal sinus rhythm. Her dosage of oral diltiazem was manipulated by Dr. Alejandra, hospitalist. At discharge, her metoprolol will be discontinued and she will be maintained on diltiazem at 180 mg extended release b.i.d., dispense #90, refill 6. At discharge, she maintains a normal sinus rhythm. The patient is advised to lift no more than 20 pounds for the next four weeks. Steri-Strips were left in place. The T-tube is well secured to the skin with an OpSite. The drain has been removed. We will see her back in the office in 3-4 weeks to remove Electronically Signed By: CAMPBELL COMER MD 03/11/24 3382 PATIENT NAME: EMILIANO SURESH DISCHARGE SUMMARY DATE OF : [birth year] REPORT #: [id number] PHYSICIAN: CAMPBELL COMER MD PCP: YESI JOSÉ MD REPORT IS CONFIDENTIAL AND NOT TO BE RELEASED WITHOUT AUTHORIZATION [facility] [address] [place] [id number] Signed the T-tube. It is unlikely that she will require additional imaging through the T-tube prior to its removal. A wheeled walker prescription has been written for her as well. DISCHARGE MEDICATIONS: Include: 1. Diltiazem 24 hour CD 180 mg capsule ER one tablet p.o. b.i.d. #90, refill six. 2. Lovelady 5/325 one p.o. q.4 hours as needed for pain, #10. 3. Tylenol plain 500 mg two tablets p.o. q.6 hours as needed for lesser pain, #90, refill zero. 4. She will continue with her home medication of apixaban (Eliquis) 2.5 mg p.o. b.i.d. and lisinopril 10 mg p.o. daily. She will not be taking metoprolol 25 mg p.o. b.i.d. DISCHARGE DIAGNOSES: 1. Acute calculous cholecystitis with choledocholithiasis and concurrent acute pancreatitis. 2. Status post laparoscopic cholecystectomy with conversion to open cholecystectomy and open common bile duct exploration, extraction of common duct stones x2 and completion T-tube cholangiogram and flexible choledochoscopy on March 04, 2024. 3. History of cerebrovascular accident seven years ago with ongoing use of Eliquis. 4. In the hospitalization, episodes of atrial fibrillation with conversion to normal sinus rhythm. 5. Hepatitis panel negative for infectious hepatitis. FOLLOWUP PLANS: She will call my office in the next week to set up an appointment to see me in 3-4 weeks. Plan will also be set up to see Dr. Yesi José, her primary provider. MD YUSRA Boyce/ROXANNL /[id number] cc: Dr. Mercy Alejandra Electronically Signed By: CAMPBELL COMER MD 03/11/24 1328 PATIENT NAME: EMILIANO SURESH DISCHARGE SUMMARY DATE OF : [birth year] REPORT #: [id number] PHYSICIAN: CAMPBELL COMER MD PCP: YESI JOSÉ MD REPORT IS CONFIDENTIAL AND NOT TO BE RELEASED WITHOUT AUTHORIZATION [facility] [address] [place] [id number] Celina Winters Copies: YESI JOSÉ MD ~ Electronically Signed By: CAMPBELL COMER MD 03/11/24 1328 PATIENT NAME: EMILIANO SURESH CORINA DISCHARGE SUMMARY DATE OF : [birth year] REPORT #: [id number] PHYSICIAN: CAMPBELL COMER MD PCP: YESI JOSÉ MD REPORT IS CONFIDENTIAL AND NOT TO BE RELEASED WITHOUT AUTHORIZATION
== END 2024-03-09 10:36 | disposition home or self-care (01) | DRG 411 ==
LOC: ED 15:26 → CCU 20:26 → MS 20:26 → CCU 03-01 22:34 → MS 03-05 13:35 → CCU 03-06 20:54
PROVIDERS: Emergency Medicine; Internal Medicine; Student in an Organized Health Care Education/Training Program; Surgery; ADMIT Surgery; ATTEND Surgery
PROC: 0FC90ZZ Extirpation of Matter from Common Bile Duct, Open Approach (ICD-10-PCS; principal; 2024-03-04 14:00)
PROC: 0FT40ZZ Resection of Gallbladder, Open Approach (ICD-10-PCS; 2024-03-04 14:00)
PROC: 0FJ44ZZ Inspection of Gallbladder, Percutaneous Endoscopic Approach (ICD-10-PCS; 2024-03-04 14:00)
DX: K80.62 Calculus of gallbladder and bile duct with acute cholecystitis without obstruction (principal); K85.10 Biliary acute pancreatitis without necrosis or infection; I10 Essential (primary) hypertension; I48.0 Paroxysmal atrial fibrillation; Z86.73 Personal history of transient ischemic attack (TIA), and cerebral infarction without residual deficits; Z79.899 Other long term (current) drug therapy; Z79.01 Long term (current) use of anticoagulants; E87.6 Hypokalemia; E83.42 Hypomagnesemia
CPT/HCPCS: 00790; 36415; 51798; 71045; 71260; 74177; 74183; 74300; 76705; 80048; 80053; 80074; 81003; 83690; 83735; 83880; 84484; 85025; 85060; 85379; 85610; 88304; 93005; 93010; 93306; 94760; 94762; A9270; A9579; C1726; J0131; J0282; J0330; J0360; J0690; J0696; J0780; J1100; J1171; J1885; J1940; J2270; J2405; J2704; J2765; J3010; J3475; J3480; J3490; J7040; J7120; J7121; Q9967